=== PATIENT | male | born 1980 | race Caucasian/White ===

== ENCOUNTER 2017-03-12 15:31 | Emergency (ER) | payer OTHER ==
[2017-03-12] MEDS: PERCOCET 5MG/325MG TAB PO (17:37)
== END 2017-03-12 18:32 | disposition home or self-care (01) ==
LOC: M ED 15:31
DX: S13.4XXA Sprain of ligaments of cervical spine, initial encounter (principal); S63.502A Unspecified sprain of left wrist, initial encounter; M47.812 Spondylosis without myelopathy or radiculopathy, cervical region; W00.9XXA Unspecified fall due to ice and snow, initial encounter; Y92.093 Driveway of other non-institutional residence as the place of occurrence of the external cause; Y93.9 Activity, unspecified; Z79.899 Other long term (current) drug therapy
CPT/HCPCS: 73110

== ENCOUNTER 2017-11-23 11:50 | Emergency (ER) | payer OTHER | END 2017-11-23 13:01 | disposition home or self-care (01) | LOC: M ED 11:50 | DX: J20.9 Acute bronchitis, unspecified (principal); E78.5 Hyperlipidemia, unspecified; G47.33 Obstructive sleep apnea (adult) (pediatric); M79.2 Neuralgia and neuritis, unspecified; F17.210 Nicotine dependence, cigarettes, uncomplicated; Z79.899 Other long term (current) drug therapy | CPT/HCPCS: 71046 ==

== ENCOUNTER 2017-11-28 15:32 | Emergency (ER) | payer OTHER ==
[2017-11-28] MEDS: KETOROLAC TROMETHAMINE 10 MG TAB PO (16:07)
[2017-11-28] MEDS: BACLOFEN 10 MG TAB PO (16:07)
== END 2017-11-28 18:07 | disposition home or self-care (01) ==
LOC: M ED 15:32
DX: S62.115A Nondisplaced fracture of triquetrum [cuneiform] bone, left wrist, initial encounter for closed fracture (principal); S33.5XXA Sprain of ligaments of lumbar spine, initial encounter; W01.0XXA Fall on same level from slipping, tripping and stumbling without subsequent striking against object, initial encounter; Y92.512 Supermarket, store or market as the place of occurrence of the external cause; E78.5 Hyperlipidemia, unspecified; G47.33 Obstructive sleep apnea (adult) (pediatric); M79.2 Neuralgia and neuritis, unspecified; Z79.899 Other long term (current) drug therapy
CPT/HCPCS: 72110

== ENCOUNTER 2019-12-18 18:17 | Emergency (ER) | payer OTHER ==
[~2019-12-18] VITALS: Ht 188 cm; Wt 101.0 kg
[~2019-12-18 18:17] MED LIST: BENZ200C70 PO; CYCL-707 PO; CYCL5TAB PO; DICL75TA PO; GABA-845 PO; NAPR-837 PO; PERC5TAB12 PO
[2019-12-18] MEDS ORDERED: IBUPROFEN 600MG TAB PO ONE (19:15)
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
[2019-12-18] MEDS ORDERED: CYCL-707 PO (20:26)
[2019-12-18] MEDS ORDERED: IBUP-1022 PO (20:26)
[2019-12-18 20:35] VITALS: BP 129/93
== END 2019-12-18 20:38 | disposition home or self-care (01) ==
LOC: M ED 18:17
DX: T14.8XXA Other injury of unspecified body region, initial encounter (principal); S23.3XXA Sprain of ligaments of thoracic spine, initial encounter; S33.5XXA Sprain of ligaments of lumbar spine, initial encounter; V40.5XXA Car driver injured in collision with pedestrian or animal in traffic accident, initial encounter; M19.011 Primary osteoarthritis, right shoulder; M17.12 Unilateral primary osteoarthritis, left knee; M51.26 Other intervertebral disc displacement, lumbar region; M25.78 Osteophyte, vertebrae; Z79.899 Other long term (current) drug therapy

== ENCOUNTER 2020-11-26 16:51 | Inpatient (IN) | payer OTHER ==
[~2020-11-26] VITALS: Ht 188 cm; Wt 93.6 kg
[~2020-11-26 16:51] MED LIST changes: +GABA-283 PO; -GABA-845 PO; +IBUP-1022 PO
[2020-11-26] MEDS ORDERED: NS 1,000 ML IV ONE ×2 (17:30→23:15)
[2020-11-26 18:02] LABS: BASO % 0.2 % (0.0-1.0); EOS # 0.1 10^3/uL (0.0-0.5); EOS % 0.5 % (0.0-3.0); HEMATOCRIT 42.7 % (42.0-52.0); HEMOGLOBIN 15.1 g/dl (13.5-17.5); LYMPH # 0.7 10^3/uL (1.5-5.0); LYMPH % 4.4 % (24.0-44.0); MEAN CORPUSCULAR HEMOGLOBIN 29.8 pg (27.0-33.0); MEAN CORPUSCULAR HGB CONC 35.4 g/dl (32.0-36.5); MEAN CORPUSCULAR VOLUME 84.4 fl (80.0-96.0); MONO # 0.6 10^3/uL (0.0-0.8); MONO % 3.4 % (2.0-8.0); NEUTROPHILS # 14.7 10^3/uL (1.5-8.5); NEUTROPHILS % 90.6 % (36.0-66.0); PLATELET COUNT, AUTOMATED 273 10^3/uL (150-450); RED BLOOD COUNT 5.06 10^6/uL (4.30-6.10); WHITE BLOOD COUNT 16.2 10^3/uL (4.0-10.0)
[2020-11-26 18:39] LABS: ALBUMIN 2.4 GM/DL (3.2-5.2); ALT/SGPT 90 U/L (12-78); BILIRUBIN,DIRECT 0.8 MG/DL (0.0-0.2); BILIRUBIN,TOTAL 1.3 MG/DL (0.2-1.0); LIPASE 470 U/L (73-393); TOTAL PROTEIN 6.9 GM/DL (6.4-8.2)
[2020-11-26] MEDS ORDERED: ONDANSETRON 4MG/2ML VIAL IV ONE (18:50)
[2020-11-26] MEDS ORDERED: NS 1,600 ML in IV 1 EA IV ONE (18:50)
[2020-11-26 19:29] LABS: CK-MB VALUE MASS 4.1 NG/ML (<3.6); CPK CREATINE PHOSPHOKINASE 1505 U/L (39-308); MB/CK RELATIVE INDEX 0.27 (< OR =4); NT-PRO BNP 1224 PG/ML (<125); TROPONIN I < 0.02 NG/ML (< 0.10)
[2020-11-26 19:43] LABS: INR 1.13; PROTHROMBIN TIME 14.9 SECONDS (12.7-14.5)
[2020-11-26] MEDS: ALBUTEROL 90 MCG/ACT 8GM HFA INHALER INH SCH ×2 (20:17→22:26)
--- NOTE | 2020-11-26 20:22 | REPVR ---
PROCEDURE INFORMATION: Exam: XR Chest Exam date and time: 11/26/2020 6:50 PM Age: 40 years old Clinical indication: Shortness of breath; Additional info: SOB TECHNIQUE: Imaging protocol: XR of the chest. Views: 1 view. COMPARISON: CR Chest, 2 view PA, Lat 11/23/2017 12:21 PM FINDINGS: Lungs: There is very heavy interstitial and alveolar density left parahilar region and throughout the left lower lobe. This is consistent with an extensive pneumonia. This can be seen with COVID-19. Sequential films would be important to see that this completely resolves to exclude any possibility of underlying mass lesion. Pleural spaces: Unremarkable. No pleural effusion. No pneumothorax. Heart/Mediastinum: There is moderate prominence left side of the heart. Bones/joints: There is no evidence of bony abnormality. IMPRESSION: Extensive interstitial and alveolar pneumonic infiltrate left parahilar region and throughout the left lower lobe. This is a very extensive pneumonia and could be associated with COVID-19. Sequential films would be important to see that this resolves and to exclude any possibility of underlying mass lesion. Electronically signed by: Roman Hutton On 11/26/2020 20:22:32 PM
[2020-11-26 20:28] LABS: D-DIMER QUANT > 4000 ng/ml (<500)
--- NOTE | 2020-11-26 20:37 | REPVR ---
PROCEDURE INFORMATION: Exam: CT Abdomen And Pelvis Without Contrast Exam date and time: 11/26/2020 6:59 PM Age: 40 years old Clinical indication: Abdominal pain; Other: Luq; Additional info: Luq abd pain TECHNIQUE: Imaging protocol: Computed tomography of the abdomen and pelvis without contrast. Radiation optimization: All CT scans at this facility use at least one of these dose optimization techniques: automated exposure control; mA and/or kV adjustment per patient size (includes targeted exams where dose is matched to clinical indication); or iterative reconstruction. COMPARISON: CT Spine, lumbar w/o contrast 12/18/2019 7:05 PM FINDINGS: Lungs: There is a very extensive interstitial and alveolar infiltrate involving the left lower lobe and a portion of the mid lung field. Is extensive pneumonia could be associated with cold at 19. Follow-up study should be obtained to see that this completely clears and to exclude any possibility of underlying malignant nodule. Heart: The heart is normal in size and there is no pericardial effusion. Liver: Normal appearing liver. Gallbladder and bile ducts: There is sludge within the gallbladder. Pancreas: Normal pancreas. Spleen: Normal appearing spleen. Adrenal glands: Normal adrenal glands. Kidneys and ureters: There is no evidence of calcified stone right or left kidney. There is no evidence of hydronephrosis. There is stranding along the margins of both kidneys greater on the left. There is some enlargement of the left kidney. This could be the result pyelonephritis. Stomach and bowel: Unremarkable. No obstruction. No mucosal thickening. Appendix: Normal appendix with a small calcification at the tip. Intraperitoneal space: Unremarkable. No free air. No significant fluid collection. Vasculature: Unremarkable. No abdominal aortic aneurysm. Lymph nodes: Unremarkable. No enlarged lymph nodes. Urinary bladder: Normal urinary bladder. Reproductive: There is severe enlargement of the prostate. Bones/joints: Unremarkable. No acute fracture. Soft tissues: Unremarkable. IMPRESSION: Extensive infiltrate involving the left lower lobe and left mid lung field. This could be an extensive pneumonia associated with COVID-19. Follow-up films should be obtained to see that this clears to exclude any possibility of underlying malignant nodule. Electronically signed by: Roman Hutton On 11/26/2020 20:37:11 PM
[2020-11-26] MEDS ORDERED: cefTRIAXone SOD 1 GM in D5W MINI-BAG PLUS 50 ML IV ONE (21:20)
[2020-11-26] MEDS ORDERED: AZITHROMYCIN INJ 500 MG, VIAL MATE ADAPTER 1 EACH in NS 250 ML IV ONE (21:20)
[2020-11-26] MEDS ORDERED: SODIUM CHLORIDE 0.9% 1000ML IV STA (21:43)
[2020-11-26] MEDS ORDERED: MOM 30ML SUSPENSION UDC PO PRN (21:45)
[2020-11-26] MEDS ORDERED: GUAI400T9 PO (21:45)
[2020-11-26] MEDS ORDERED: FLON1SPR NARES (21:45)
[2020-11-26] MEDS ORDERED: NAPR-885 PO (21:45)
[2020-11-26] MEDS ORDERED: ATEN25TA PO (21:45)
[2020-11-26] MEDS ORDERED: METH-1164 PO (21:45)
[2020-11-26] MEDS ORDERED: MAALOX 30 ML SUSP *UDC PO PRN (21:45)
[2020-11-26] MEDS ORDERED: RIBO400T PO (21:45)
[2020-11-26] MEDS ORDERED: OCEA0.654 NARES (21:45)
[2020-11-26] MEDS ORDERED: BUPR15TA PO (21:45)
[2020-11-26] MEDS ORDERED: ROSU40TA4 PO (21:45)
[2020-11-26] MEDS ORDERED: ACET500T15 PO (21:45)
[2020-11-26] MEDS ORDERED: GNP1CRE5 TOP (21:45)
[2020-11-26] MEDS ORDERED: D31000TA2 PO (21:45)
[2020-11-26] MEDS ORDERED: METF-838 PO (21:45)
[2020-11-26] MEDS ORDERED: GABA-283 PO (21:45)
[2020-11-26] MEDS ORDERED: HOME MED LIST COMPLETE! XX SCH (21:50)
--- NOTE | 2020-11-26 21:57 | HPEPDOC ---
[facility] Medical History & Physical Date of Admission Nov 26, 2020 Date of Service: Nov 26, 2020 Other Provider Marcello John MD Attending Physician: TK ZAVALA MD History and Physical TIME OF SERVICE: 10 45pm CHIEF COMPLAINT: dyspnea HISTORY OF PRESENT ILLNESS: For about 6 days has been having dyspnea, diarrhea, & cough; he had a COVID test done at [facility] on Friday that was negative; he subsequently developed left upper abdominal pain, subjective fevers, non-bloody vomiting and has lost 20lbs in the last week because his appetite was poor. He came to the hospital today because he was worried about spreading the infection to other around and found that he had to stop work to go to the bathroom frequently. He was started on abx for presumed PNA in the ER. 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 ALLERGIES: Please see below. HOME MEDICATIONS: Please see below. PHYSICAL EXAMINATION: Vital Signs Date Time Temp Pulse Resp B/P (MAP) Pulse Ox O2 Delivery O2 Flow Rate FiO2 11/26/20 16:51 97.7 117 18 135/93 (107) 93 Room Air GENERAL APPEARANCE: well-nourished and developed/ NAD HEENT: EOMI / no scleral icterus / mask in place covering lower face CARDIOVASCULAR: tachycardic /NMRG LUNGS: tachypneic, using accessory muscles / has difficulties speaking a complete sentence w/o stopping to take a break ABDOMEN: contour convex/ soft & NT w palpation MUSCULOSKELETAL: NCAT / DAYSI x 4 extremities INTEGUMENT: slighlty flushed / not diaphoretic NEUROLOGICAL: CN 2-12 grossly intact / speech not dysarthric PSYCHIATRIC: A&O / able to understand and follow all commands LABORATORY DATA: IMAGING: Chest xray IMPRESSION: Extensive interstitial and alveolar pneumonic infiltrate left parahilar region and throughout the left lower lobe. This is a very extensive pneumonia and could be associated with COVID-19. Sequential films would be important to see that this resolves and to exclude any possibility of underlying mass lesion. CT abd/pelvis IMPRESSION: Extensive infiltrate involving the left lower lobe and left mid lung field. This could be an extensive pneumonia associated with COVID-19. Follow-up films should be obtained to see that this clears to exclude any possibility of underlying malignant nodule. MICROBIOLOGY: Respiratory panel neg ASSESSMENT: is a 70 yr old M w a hx of Migraines, NIDDM, OA, DLP, Chronic Back pain, & MYRON who will be admitted for sepsis likely 2/2 PNA & CANDACE. PLAN: 1 Sepsis 2/2 PNA Plan: admit to PCU / telemetry / Zosyn and vancomycin first pending blood cx & lactic acid / IVF /f/u blood cx, UA w culture and sputum culture / Acetaminophen PRN for fever / target MAP at of least 65 to 70 / f/u Is and Os with target UOP of at least 0.5 ml/kg/H / f/u FSBS w target serum glucose 140-180 while acutely ill 2 Chest pain likely 2/2 PNA Plan: f/u CT chest / continuous pulse ox & supplemental O2/ f/u sputum culture / Pip-Tazo & Vanc pending blood cx, sputum cx, strep pneumo, legionella & MRSA / IVF / Tessalon pearls / Acetaminophen PRN for fever 3 CANDACE 2/2 poor PO intake, metformin and NSAID use Plan: monitor UOP / IVF / f/u renal panel, Ulytes, UDS / renal US / hold nephrotoxic drugs 4 Hepatic Pattern of Transaminitis Plan: f/u Hepatitis panel & trend LFTs 5 Metabolic acidosis 2/2 diarrhea +/- RTA Plan: f/u AGB to further characterize cause 6 Hyponatremia Plan; f/u serum osm, Uosmo and Sofi 7 Elevated CPK Plan: f/u urine myoglobin & UDS / trend CPK/ IVF 8 Elevated BNP Clinically dehydrated therefore this is likely due to PNA Plan: f/u CT chest 9 Elevated D-dimer Likely due to acute illness but need to r/o embolic event Plan: f/u BLE US & consider VQ Scan / start Heparin drip in the interim 10 Diarrhea Plan; f/u GI panel 11 Migraines Plan: Atenolol 12 NIDDM Plan: diabetic diet / f/u accuchecks / hypoglycemia protocol / sliding scale insulin / hold oral anti-glycemics / f/u A1C / hold Gabapentin for neuropathy bc of CANDACE? DVT px w Heparin drip pending results to r/o DVT/PE Dispo: home after at least 2 midnights stay LATE ENTRY 1252AM #Elevate D-dimer Likely 2/2 PNA The BLE US were negative for DVT and his Well's scores for DVT & PE are low therefore we will dc the heparin drip in favor for prophylactic dose heparin Home Medications Scheduled Atenolol (Atenolol) 25 Mg Tablet, 12.5 MG PO DAILY Bupropion HCl (Wellbutrin Sr) 150 Mg Tab.sr.12h, 150 MG PO BID Cholecalciferol (Vitamin D3) (Vitamin D3) 1,000 Unit Tablet, 1,000 UNITS PO BIDWM Fluticasone Propionate (Flonase Allergy Relief) 9.9 Ml [place].susp, 1 SPRAY NARES DAILY Gabapentin (Gabapentin) 400 Mg Capsule, 400 MG PO TID Guaifenesin (Guaifenesin) 400 Mg Tablet, 400 MG PO BID Metformin HCl (Metformin HCl ER) 500 Mg Tab.er.24h, 500 MG PO BIDWM Methocarbamol (Methocarbamol) 500 Mg Tablet, 250 MG PO QHS Naproxen (Naproxen) 500 Mg Tablet, 500 MG PO BID Riboflavin (Vitamin B2) (Riboflavin) 400 Mg Tablet, 400 MG PO DAILY Rosuvastatin Calcium (Rosuvastatin Calcium) 40 Mg Tablet, 40 MG PO QPM Sodium Chloride ([place]) 104 Ml [place], 1 SPRAY NARES BID EACH NOSTRIL Scheduled PRN Acetaminophen (Acetaminophen) 500 Mg Tablet, 500 MG PO Q6H PRN for HEADACHE Terbinafine HCl (Terbinafine) 28.4 Gm Cream..g., 1 APLCT TOP BID PRN for TOENAIL INFECTION Allergies Coded Allergies: No Known Allergies (Unverified , 03/12/17) A-FIB/CHADSVASC A-FIB History Current/History of A-Fib/PAF?: No Current PO Anticoag Therapy: No TK ZAVALA MD Nov 26, 2020 21:57
[2020-11-26 22:49] LABS: MAGNESIUM LEVEL 2.7 MG/DL (1.8-2.4)
[2020-11-26 22:55] LABS: CALCIUM LEVEL 7.9 MG/DL (8.5-10.1); CREATININE FOR GFR 4.95 MG/DL (0.70-1.30); GLOMERULAR FILTRATION RATE 13.8 (>60); PHOSPHORUS LEVEL 4.4 MG/DL (2.5-4.9); POTASSIUM SERUM 3.8 MEQ/L (3.5-5.1); TOTAL PROTEIN 5.9 GM/DL (6.4-8.2)
[2020-11-26] MEDS ORDERED: DEXTROSE 50% 50 ML SYRINGE IV PRN (22:55)
[2020-11-26] MEDS ORDERED: GLUCAGON INJ 1MG VIAL SC PRN (22:55)
[2020-11-26] MEDS ORDERED: GLUCOSE 4GM CHEW TABLET PO PRN (22:55)
[2020-11-26] MEDS: buPROPion **SR TABLET** (ZYBAN) 150MG PO SCH (22:55)
[2020-11-26] MEDS ORDERED: GABAPENTIN 400MG CAP PO SCH (22:55)
[2020-11-26] MEDS ORDERED: methocarbamoL 500 MG TAB PO SCH (22:55)
[2020-11-26] MEDS ORDERED: HEPARIN DRIP 25,000 UNITS in IV 1 EA IV SCH (23:15)
[2020-11-26] MEDS ORDERED: HEPARIN SOD (PORCINE) 5000UNITS/ML 1ML VIAL/SYRINGE IV PRN (23:15)
--- NOTE | 2020-11-26 23:48 | REPVR ---
PROCEDURE INFORMATION: Exam: US Duplex Lower Extremity Veins, Bilateral Exam date and time: 11/26/2020 10:47 PM Age: 40 years old Clinical indication: Abnormal findings; Abnormal lab test; Elevated d-dimer; Additional info: Dyspnea w high d-dimer can't do cta bc of mauricio / R/O dvt TECHNIQUE: Imaging protocol: Real-time duplex ultrasound of the extremities with 2-D padgett scale, color Doppler flow and spectral waveform analysis with image documentation. Complete exam focused on the bilateral lower extremity veins. COMPARISON: CT ABD PELVIS W/O CONTRAST 11/26/2020 6:55 PM FINDINGS: Right deep veins: Unremarkable. The common femoral, femoral, proximal profunda femoral and popliteal veins are patent without thrombus. Normal Doppler waveforms. Normal compressibility and/or augmentation response. Right superficial veins: Saphenofemoral junction is patent without thrombus. Left deep veins: Unremarkable. The common femoral, femoral, proximal profunda femoral and popliteal veins are patent without thrombus. Normal Doppler waveforms. Normal compressibility and/or augmentation response. Left superficial veins: Saphenofemoral junction is patent without thrombus. Soft tissues: Unremarkable. IMPRESSION: No evidence of deep vein thrombosis. Electronically signed by: Roman Hutton On 11/26/2020 23:48:11 PM
[2020-11-27] VITALS (20 sets, daily range): BP systolic 117–143; BP diastolic 64–88; PULSE 103; O2SAT 92–97
[2020-11-27] MEDS ORDERED: VANCOMYCIN HCL 1,000 MG, VIAL MATE ADAPTER 1 EACH in NS 250 ML IV ONE ×3
[2020-11-27 00:22] LABS: ABG BASE EXCESS -7.9 (-2.0-2.0); ABG HCO3 15.7 MEQ/L (22.0-26.0); ABG O2 SATURATION 95.9 % (95.0-99.0); ABG PARTIAL PRESSURE CO2 27.4 mmHg (35.0-45.0); ABG PARTIAL PRESSURE O2 87.4 mmHg (75.0-100.0); ABG STANDARD HCO3 18.1 MEQ/L (22.0-26.0); ABG TOTAL CO2 16.6 MEQ/L (22.0-29.0); ABG pH (ARTERIAL) 7.377 UNITS (7.350-7.450)
--- NOTE | 2020-11-27 00:34 | REPVR ---
PROCEDURE INFORMATION: Exam: CT Chest Without Contrast; Diagnostic Exam date and time: 11/26/2020 10:04 PM Age: 40 years old Clinical indication: Pain; Chest pressure; Additional info: Dyspnea with negative covid test TECHNIQUE: Imaging protocol: Diagnostic computed tomography of the chest without contrast. 3D rendering (Not supervised by radiologist): MIP and/or 3D reconstructed images were created by the technologist. Radiation optimization: All CT scans at this facility use at least one of these dose optimization techniques: automated exposure control; mA and/or kV adjustment per patient size (includes targeted exams where dose is matched to clinical indication); or iterative reconstruction. COMPARISON: 1. CR PORTABLE CHEST X-RAY 11/26/2020 6:[address] ABD PELVIS W/O CONTRAST 11/26/2020 6:55:00 PM FINDINGS: Limitations: Respiratory motion artifact degrades the image quality. Thyroid: Unremarkable. Trachea: Normal. Bronchial tree: The mainstem bronchi are patent. Lungs: There is extensive airspace consolidation in the left upper and lower lobes. No cavitation is noted. The right lung is clear. Pleural spaces: There is a trace left pleural effusion. No pneumothorax. No calcified pleural plaques. Heart: No cardiomegaly. There is a trace amount of fluid in the pericardial sac. Mediastinal space: No mediastinal mass, fluid collection, or pneumomediastinum. Aorta: No thoracic aortic aneurysm or intramural hematoma is noted. Lymph nodes: There are subcentimeter mediastinal lymph nodes. However, no abnormally enlarged lymph nodes measuring greater than 1 cm in short axis are noted. Bones/joints: There is no fracture or dislocation. No suspicious osteolytic or osteoblastic lesion. There is a screw in the right glenoid. There is severe osteoarthritis of the right glenohumeral joint. There are endplate spurs in the thoracic spine. Soft tissues: Unremarkable. No soft tissue fluid collection. Other findings: For details regarding the abdominal and pelvic findings, refer to the CT abdomen and pelvis report on 11/26/2020. IMPRESSION: 1. Extensive airspace consolidation in the left upper and lower lobes, which is most compatible with pneumonia. 2. Trace left pleural effusion. Electronically signed by: Jett Dupont On 11/27/2020 00:34:18 AM
[2020-11-27 00:47] LABS: OSMOLALITY SERUM 302 MOSM/KG (275-295)
[2020-11-27] MEDS: LIDOCAINE 5% (LIDODERM) PATCH TD SCH ×2 (01:47→21:34)
[2020-11-27] MEDS: NS 1,000 ML IV SCH ×5 (01:48→23:17)
[2020-11-27] MEDS ORDERED: VANCOMYCIN HCL 1,000 MG, VIAL MATE ADAPTER 1 EACH in NS 250 ML IV SCH (03:00)
[2020-11-27 04:16] LABS: HEMATOCRIT 35.3 % (42.0-52.0); MEAN CORPUSCULAR HEMOGLOBIN 30.1 pg (27.0-33.0); MEAN CORPUSCULAR HGB CONC 35.4 g/dl (32.0-36.5); MEAN CORPUSCULAR VOLUME 85.1 fl (80.0-96.0); PLATELET COUNT, AUTOMATED 264 10^3/uL (150-450); RED BLOOD COUNT 4.15 10^6/uL (4.30-6.10); WHITE BLOOD COUNT 12.3 10^3/uL (4.0-10.0)
[2020-11-27 04:32] LABS: HEMOGLOBIN 12.5 g/dl (13.5-17.5)
[2020-11-27 04:38] LABS: HEMOGLOBIN A1c 5.7 %
[2020-11-27 04:39] LABS: ALBUMIN 1.8 GM/DL (3.2-5.2); BILIRUBIN,TOTAL 0.8 MG/DL (0.2-1.0); CALCIUM LEVEL 8.2 MG/DL (8.5-10.1); CREATININE FOR GFR 4.9 MG/DL (0.70-1.30); GLOMERULAR FILTRATION RATE 13.9 (>60); MAGNESIUM LEVEL 2.6 MG/DL (1.8-2.4); POTASSIUM SERUM 3.4 MEQ/L (3.5-5.1); TOTAL PROTEIN 6.2 GM/DL (6.4-8.2)
[2020-11-27] MEDS: PIPERACILLIN/TAZOBACTAM SOD 3.375 GM in D5W MINI-BAG PLUS 50 ML IV SCH ×2 (04:40→09:38)
[2020-11-27] MEDS: HumaLOG INSULIN (NovoLOG) PER UNIT SC SCH ×4 (05:35→18:00)
[2020-11-27] MEDS ORDERED: HEPARIN SOD (PORCINE) 5000UNITS/ML 1ML VIAL/SYRINGE SQ SCH (06:00)
[2020-11-27 06:46] LABS: CREATININE,RANDOM URINE 90.7 MG/DL
[2020-11-27 06:46] LABS: AMPHETAMINES LEVEL URINE NEGATIVE (NEGATIVE); BARBITURATES URINE NEGATIVE (NEGATIVE); BENZODIAZEPINES URINE NEGATIVE (NEGATIVE); CANNABINOIDS URINE NEGATIVE (NEGATIVE); COCAINE METABOLITE URINE NEGATIVE (NEGATIVE); METHADONE URINE NEGATIVE (NEGATIVE); OPIATES URINE NEGATIVE (NEGATIVE); PHENCYCLIDINE URINE NEGATIVE (NEGATIVE)
[2020-11-27 07:44] LABS: MYOGLOBIN SCREEN, URINE POSITIVE (NEGATIVE)
[2020-11-27] MEDS ORDERED: POTASSIUM CHLORIDE 10MEQ SR TABLET PO ONE (08:00)
[2020-11-27] MEDS: FLUTICASONE PROP 0.05% NASAL SPRAY 16 GM (FLONASE) NARES SCH (09:36)
[2020-11-27] MEDS: atenoloL 25 MG TAB PO SCH (09:37)
[2020-11-27] MEDS: buPROPion **SR TABLET** (ZYBAN) 150MG PO SCH ×2 (09:37→21:34)
[2020-11-27 12:07] LABS: HEPATITIS B SURFACE ANTIBODY POSITIVE (POSITIVE)
[2020-11-27 12:11] LABS: PTH INTACT 50.7 PG/ML (18.5-88.0)
[2020-11-27 12:18] LABS: HEPATITIS B SURFACE ANTIGEN NEGATIVE (NEGATIVE)
[2020-11-27 12:46] LABS: HEPATITIS B CORE ANTIBODY IGM NEGATIVE (NEGATIVE); HEPATITIS C VIRUS ABY INDEX < 0.0 INDEX (<0.8)
[2020-11-27 14:27] LABS: HIV 1&2 SCREEN CENTAUR NEGATIVE (NEGATIVE)
[2020-11-27] MEDS: CEFEPIME HCL 2 GM in D5W MINI-BAG PLUS 50 ML IV SCH (16:30)
[2020-11-27 16:43] LABS: HEMOGLOBIN A1c 5.7 %
[2020-11-27 17:48] LABS: CALCIUM LEVEL 7.3 MG/DL (8.5-10.1); CREATININE FOR GFR 4.81 MG/DL (0.70-1.30); GLOMERULAR FILTRATION RATE 14.2 (>60); POTASSIUM SERUM 4.2 MEQ/L (3.5-5.1)
--- NOTE | 2020-11-27 19:06 | IPNPDOC ---
Date Seen The patient was seen on 11/27/20. Progress Note SUBJECTIVE: Patient is a 40-year-old male with sepsis, chest pain, CANDACE, likely all secondary to pneumonia. Was experiencing symptoms of dyspnea, diarrhea, cough 6 days prior to presentation to the ED. He reports no new events overnight and reports resolution of shortness of,, and difficulty breathing. OBJECTIVE PHYSICAL EXAMINATION: VITAL SIGNS: Please see below. GENERAL: 40-year-old male, sitting propped in bed, no acute distress HEENT: Head normocephalic/atraumatic CARDIOVASCULAR: Regular rate and rhythm (limited due to poor quality of single use stethoscope provided). RESPIRATORY: Egophony heard on auscultation. ABDOMINAL: Suprapubic fullness detected on palpation LABORATORY DATA, IMAGING STUDIES, MICROBIOLOGY: Please see below. Imaging Vascular ultrasound 11/26/2020: No evidence of deep vein fibrosis Chest CT 11/26/2020: 1. Extensive airspace consolidation in the left upper and lower lobes, which is most compatible with pneumonia. 2. Trace left pleural effusion. Abdomen pelvis CT 11/26/2020: Extensive infiltrate involving the left lower lobe and left mid lung field. This could be an extensive pneumonia associated with COVID-19. Follow-up films should be obtained to see that this clears to exclude any possibility of underlying malignant nodule. Chest x-ray 11/26/2020: Extensive interstitial and alveolar pneumonic infiltrate left parahilar region and throughout the left lower lobe. This is a very extensive pneumonia and could be associated with COVID-19. Sequential films would be important to see that this resolves and to exclude any possibility of underlying mass lesion. Echocardiogram: . DVT prophylaxis ordered?: Heparin ASSESSMENT AND PLAN: This is a 40-year-old male with sepsis, chest pain, AKA likely secondary to pneumonia. Also has history of migraines, and IDDM, OA, hyperlipidemia, chronic back pain, obstructive sleep apnea. PROBLEMS: 1 Sepsis 2/2 PNA Plan: admit to PCU / telemetry Zosyn and vancomycin discontinued switched to cefepime and azithromycin IVF /f/u blood cx, UA w culture and sputum culture Acetaminophen PRN for fever Target MAP at of least 65 to 70 / f/u Is and Os with target UOP of at least 0.5 ml/kg/H / f/u FSBS w target serum glucose 140-180 while acutely ill HIV negative 2 Chest pain likely 2/2 PNA Plan: f/u CT chest Continuous pulse ox & supplemental O2 FU sputum culture Pending blood cx, sputum cx, strep pneumo, legionella & MRSA IVF / Tessalon pearls / Acetaminophen PRN for fever 3 CANDACE 2/2 poor PO intake, metformin and NSAID use Plan: monitor UOP / IVF / f/u renal panel, Ulytes, UDS / renal US / hold nephrotoxic drugs 4 Hepatic Pattern of Transaminitis Plan: f/u Hepatitis panel & trend LFTs 5 Metabolic acidosis 2/2 diarrhea +/- RTA Plan: f/u AGB to further characterize cause 6 Hyponatremia Plan; f/u serum osm, Uosmo and Sofi 7 Elevated CPK Plan: f/u urine myoglobin & UDS / trend CPK/ IVF 8 Elevated BNP Clinically dehydrated therefore this is likely due to PNA 9 Elevated D-dimer Likely due to acute illness , Wells score also very low. Heparin drip will be discontinued 10 Diarrhea Plan; f/u GI panel 11 Migraines Plan: Atenolol 12 NIDDM Plan: diabetic diet / f/u accuchecks / hypoglycemia protocol / sliding scale insulin / hold oral anti-glycemics / f/u A1C / hold Gabapentin for neuropathy bc of CANDACE? DVT prophylaxis with Heparin subcu Dispo: home after at least 2 midnights stay VS, I&O, [facility] Vital Signs/I&O Vital Signs Date Time Temp Pulse Resp B/P (MAP) Pulse Ox O2 Delivery O2 Flow Rate FiO2 11/27/20 16:00 96.7 68 18 117/76 (90) 94 Room Air I&O- Last 24 Hours up to 6 AM 11/27/20 06:00 Intake Total 2905 ml Balance 2905 ml Laboratory Data 24H LABS Laboratory Tests 2 11/26/20 19:17: Prothrombin Time 14.9H, Prothromb Time International Ratio 1.13, Activated Partial Thromboplast Time 40.0H, D-Dimer, Quantitative > 4000H 11/26/20 20:20: Urine Color YELLOW, Urine Appearance HAZY, Urine pH 5.0, Urine Specific [place] 1.015, Urine Protein 2+H, Urine Glucose (UA) NEGATIVE, Urine Ketones TRACEH, Urine Blood 2+H, Urine Nitrite NEGATIVE, Urine Bilirubin NEGATIVE, Urine Urobilinogen 2.0H, Urine Leukocyte Esterase NEGATIVE, Urine WBC (Auto) 1, Urine RBC (Auto) 7H, Urine Hyaline Casts (Auto) 0, Urine Bacteria (Auto) NEGATIVE, Ur ine Squamous Epithelial Cells 0, Urine Amorphous Sediment SMALLH, Urine Mucus (Auto) SMALL, Urine Sperm (Auto) 11/26/20 22:17: Anion Gap 14, Glomerular Filtration Rate 13.8L, Osmolality 302H, Lactic Acid Level 1.0, Calcium Level 7.9L, Phosphorus Level 4.4, Magnesium Level 2.7H, Total Bilirubin 1.0, Aspartate Amino Transf (AST/SGOT) 97H, Alanine Aminotransferase (ALT/SGPT) 73, Alkaline Phosphatase 78, Total Protein 5.9L, Albumin 2.0L, Albumin/Globulin Ratio 0.5, Procalcitonin 21.12, Parathyroid Hormone (Intact) 50.7, Hepatitis B Surface Antigen NEGATIVE, Hepatitis B Surface Antibody POSITIVE, Hepatitis B Core IgM Antibody NEGATIVE, Hepatitis C Antibody Index < 0.0 11/26/20 23:51: Activated Partial Thromboplast Time 40.9H 11/27/20 00:10: Blood Gas Bicarbonate Standard 18.1L, Arterial Blood pH 7.377, Arterial Blood Partial Pressure CO2 27.4L, Arterial Blood Partial Pressure O2 87.4, Arterial Blood Total CO2 16.6L, Arterial Blood HCO3 15.7L, Arterial Blood Base Excess - 7.9L, Arterial Blood Oxygen Saturation 95.9 11/27/20 01:39: Bedside Glucose (Misc Panel) 153H 11/27/20 04:01: Nucleated Red Blood Cells % (auto) 0.0, Anion Gap 12, Glomerular Filtration Rate 13.9L, Estimated Mean Plasma Glucose 117H, Hemoglobin A1c 5.7, Calcium Level 8.2L, Magnesium Level 2.6H, Total Bilirubin 0.8, Aspartate Amino Transf (AST/SGOT) 82H, Alanine Aminotransferase (ALT/SGPT) 66, Alkaline Phosphatase 78, Total Creatine Kinase 1028H, MK-Fdy-X-Type Natriuretic Peptide 935H, Total Protein 6.2L, Albumin 1.8L, Albumin/Globulin Ratio 0.4 11/27/20 05:33: Bedside Glucose (Misc Panel) 121H 11/27/20 05:52: Urine Myoglobin POSITIVE, Urine Osmolality 459, Urine Opiates Screen NEGATIVE, Urine Methadone Screen NEGATIVE, Urine Barbiturates Screen NEGATIVE, Urine Phencyclidine Screen NEGATIVE, Urine Amphetamines Screen NEGATIVE, Urine Benzodiazepines Screen NEGATIVE, Urine Cocaine Metabolite Screen NEGATIVE, Urine Cannabinoids Screen NEGATIVE, Methicillin-Resist S.aureus DNA PCR NOT DETECTED 11/27/20 05:56: Urine Random Creatinine 90.7, Urine Random Sodium 48, Urine Random Urea Nitrogen 823 11/27/20 12:17: Prostate Specific Antigen Screen 6.80H, HIV Antigen/Antibody Combo Qual NEGATIVE 11/27/20 12:20: Bedside Glucose (Misc Panel) 153H 11/27/20 12:23: 11/27/20 12:29: 11/27/20 16:37: Anion Gap 10, Glomerular Filtration Rate 14.2L, Calcium Level 7.3L 11/27/20 17:36: Bedside Glucose (Misc Panel) 103 CBC/BMP Laboratory Tests 11/26/20 22:17 11/27/20 04:01 11/27/20 16:37 Microbiology Microbiology 11/27/20 Respiratory Virus Panel (PCR) (KRYSTLE) - Final, Complete 11/26/20 Blood Culture, Received Pending 11/26/20 Blood Culture, Received Pending 11/26/20 Respiratory Virus Panel (PCR) (KRYSTLE) - Final, Complete GME ATTESTATION GME ATTESTATION My faculty preceptor for this patient encounter was physically present during the encounter and was fully available. All aspects of the patient interview, examination, medical decision making process, and medical care plan development were reviewed and approved by the faculty preceptor. The faculty preceptor is aware and concurs with the plan as stated in the body of this note and will attest to such by his/her cosignature. ATTENDING NOTE I, Eh Ramesh MD, have independently examined this patient and performed my own physical exam, as well as reviewed the documentation and edited where necessary. I have discussed in detail with the resident / student the findings and plan of treatment as documented by the resident / student and edited their note. I agree with their findings and treatment plan and have edited their documentation. Mark Cruz DO Nov 27, 2020 19:06 EH RAMESH MD Dec 01, 2020 12:44
[2020-11-27] MEDS ORDERED: **NOTE PATIENT COMMENT** MISC XX SCH (21:00)
[2020-11-27] MEDS: AZITHROMYCIN 250MG TABLET PO SCH (21:34)
[2020-11-27] MEDS: HEPARIN SOD (PORCINE) 5000UNITS/ML 1ML VIAL/SYRINGE SQ SCH (21:34)
[2020-11-28] VITALS (12 sets, daily range): BP systolic 125–143; BP diastolic 77–86; O2SAT 90–97
[2020-11-28] MEDS: HumaLOG INSULIN (NovoLOG) PER UNIT SC SCH ×5 (00:35→21:00)
[2020-11-28] MEDS: CEFEPIME HCL 2 GM in D5W MINI-BAG PLUS 50 ML IV SCH ×2 (03:45→17:11)
[2020-11-28 05:15] LABS: HEMATOCRIT 36.3 % (42.0-52.0); HEMOGLOBIN 12.5 g/dl (13.5-17.5); MEAN CORPUSCULAR HEMOGLOBIN 29.9 pg (27.0-33.0); MEAN CORPUSCULAR HGB CONC 34.4 g/dl (32.0-36.5); MEAN CORPUSCULAR VOLUME 86.8 fl (80.0-96.0); PLATELET COUNT, AUTOMATED 378 10^3/uL (150-450); RED BLOOD COUNT 4.18 10^6/uL (4.30-6.10); WHITE BLOOD COUNT 9.9 10^3/uL (4.0-10.0)
[2020-11-28 05:42] LABS: ALBUMIN 1.7 GM/DL (3.2-5.2); BILIRUBIN,TOTAL 0.6 MG/DL (0.2-1.0); CALCIUM LEVEL 8.2 MG/DL (8.5-10.1); CREATININE FOR GFR 4.47 MG/DL (0.70-1.30); GLOMERULAR FILTRATION RATE 15.5 (>60); MAGNESIUM LEVEL 2.5 MG/DL (1.8-2.4); POTASSIUM SERUM 3.9 MEQ/L (3.5-5.1)
[2020-11-28] MEDS: HEPARIN SOD (PORCINE) 5000UNITS/ML 1ML VIAL/SYRINGE SQ SCH ×3 (05:44→21:54)
[2020-11-28 05:46] LABS: EOSINOPHILS 7 % (0-3); LYMPHOCYTES 6 % (16-44); MONOCYTES 6 % (0-5); NEUTROPHILS 76 % (28-66)
[2020-11-28 05:47] LABS: PLATELET ESTIMATE NORMAL (NORMAL)
[2020-11-28] MEDS ORDERED: SODIUM CHLORIDE 0.9% 1000ML IV ONE (07:40)
[2020-11-28] MEDS: FLUTICASONE PROP 0.05% NASAL SPRAY 16 GM (FLONASE) NARES SCH (08:40)
[2020-11-28] MEDS: buPROPion **SR TABLET** (ZYBAN) 150MG PO SCH ×2 (08:40→20:58)
[2020-11-28] MEDS: atenoloL 25 MG TAB PO SCH (08:40)
[2020-11-28] MEDS: **NOTE PATIENT COMMENT** MISC XX SCH (08:42)
--- NOTE | 2020-11-28 09:15 | ECHO ---
ECHOCARDIOGRAM DATE OF PROCEDURE: 11/27/2020 Age: Gender: M Height: 188 cm Weight: 87 kg REFERRING PHYSICIAN: Dr. Mark Cruz INDICATION: Dyspnea MEASUREMENTS: IVS: 0.9 LV: 4.7 LVPW: 1.0 LA: 3.4 Aorta: 3.0 Left atrial volume index: 21 Mitral E wave velocity is 80; A wave 50 E prime septal: 13 E prime lateral: 15 FINDINGS: This study is of good technical quality. The patient is in sinus rhythm. Left ventricle has normal size and systolic function with estimated ejection fraction (EF) of approximately 60% to 65%. No segmental wall motion abnormalities are appreciated. Right ventricle has also normal size and systolic function. Both atria appear normal. All four cardiac valves are reasonably well seen and appear normal. No pericardial effusion is noted. Left pleural effusion is seen. Inferior vena cava is normal size. Aortic root, aortic arch and visualized segment of abdominal aorta appear normal. Doppler interrogation reveals competent aortic valve. There is trace mitral and trace tricuspid insufficiency. Calculated pulmonary artery pressure is within normal limits. Mitral inflow pattern and tissue Doppler imaging of mitral annulus revealed normal diastolic function. CONCLUSIONS: 1. Study is of good technical quality, underlying sinus rhythm. 2. Normal left ventricle (LV) size, systolic and diastolic function. 3. No significant valvular disease. 4. Likely normal central venous pressure, normal pulmonary artery pressure. 5. Left pleural effusion.
[2020-11-28] MEDS: NS 1,000 ML IV SCH ×3 (09:38→22:23)
--- NOTE | 2020-11-28 10:36 | REP ---
INDICATION: mauricio COMPARISON: 02/08/2019 TECHNIQUE: Real time padgett scale ultrasound examination using curved array transducer. FINDINGS: Bilateral kidneys are normal in contour, size, echogenicity, and reniform shape. No hydronephrosis, nephrolithiasis, cystic or renal mass lesion. Right kidney measures 12.3 x 5.7 x 5.4 cm. Left kidney measures 12.4 x 7.8 x 6.0 cm. Heterogeneous prostate gland measures 5.0 x 3.9 x 4.1 cm. Bladder is unremarkable. IMPRESSION: Normal renal ultrasound. Mildly prominent heterogeneous prostate gland. <Electronically signed by Praneeth Roberto > 11/28/20 1037
--- NOTE | 2020-11-28 12:05 | IPNPDOC ---
Date Seen The patient was seen on 11/28/20. Progress Note SUBJECTIVE: Patient is a 40-year-old male with sepsis, chest pain, CANDACE likely secondary to pneumonia. Today patient reports feeling better than yesterday. He reports no more shortness of breath but he does endorse productive cough. Review of systems: Constitutional: Denies fever, chills Cardiac: Denies chest pain, tachycardia Respiratory: Reports productive cough; denies shortness of breath, pain with breathing Gastrointestinal: Denies nausea, vomiting, diarrhea Neurological: Denies headache, dizziness Genitourinary: Denies hematuria, dysuria OBJECTIVE PHYSICAL EXAMINATION: VITAL SIGNS: Please see below. GENERAL: 40-year-old, male, sitting propped up in bed, in no acute distress HEENT: Normocephalic atraumatic, moist mucous membranes and tongue CARDIOVASCULAR: Regular rate and rhythm, no murmurs, no rubs, no gallops RESPIRATORY: Clear to auscultation bilateral. ABDOMINAL: Normoactive bowel sounds, nontender to palpation, nondistended, no guarding or rebound tenderness EXTREMITIES: 2+ radial pulse LABORATORY DATA, IMAGING STUDIES, MICROBIOLOGY: Please see below. Renal ultrasound 11/28/2020: Normal renal ultrasound. Mildly prominent heterogeneous prostate gland. Vascular ultrasound 11/26/2020: No evidence of deep vein fibrosis Chest CT 11/26/2020: 1. Extensive airspace consolidation in the left upper and lower lobes, which is most compatible with pneumonia. 2. Trace left pleural effusion. Abdomen pelvis CT 11/26/2020: Extensive infiltrate involving the left lower lobe and left mid lung field. This could be an extensive pneumonia associated with COVID-19. Follow-up films should be obtained to see that this clears to exclude any possibility of underlying malignant nodule. Chest x-ray 11/26/2020: Extensive interstitial and alveolar pneumonic infiltrate left parahilar region and throughout the left lower lobe. This is a very extensive pneumonia and could be associated with COVID-19. Sequential films would be important to see that this resolves and to exclude any possibility of underlying mass lesion. Echocardiogram: . DVT prophylaxis ordered?: Heparin ASSESSMENT AND PLAN: ASSESSMENT AND PLAN: This is a 40-year-old male with sepsis, chest pain, AKA likely secondary to pneumonia. Also has history of migraines, and IDDM, OA, hyperlipidemia, chronic back pain, obstructive sleep apnea. PROBLEMS: 1 Sepsis 2/2 PNA Plan: admit to PCU / telemetry Zosyn and vancomycin discontinued switched to cefepime and azithromycin IVF decreased to 75 mls/hr f/u blood cx, UA w culture and sputum culture Acetaminophen PRN for fever Target MAP at of least 65 to 70 f/u Is and Os with target UOP of at least 0.5 ml/kg/H / f/u FSBS w target serum glucose 140-180 while acutely ill HIV negative 2 Chest pain likely 2/2 PNA Plan: f/u CT chest Continuous pulse ox & supplemental O2 FU sputum culture Pending blood cx, sputum cx, strep pneumo, legionella & MRSA IVF Tessalon pearls / Acetaminophen PRN for fever 3 CANDACE more likely ATN 2/2 poor PO intake, metformin and NSAID use Plan: monitor UOP / IVF / f/u renal panel, Ulytes, UDS / renal US / hold nephrotoxic drugs Spot urine, Cr, and total protein labs, cytology and microscopy ordered 4 Hepatic Pattern of Transaminitis Plan: f/u Hepatitis panel & trend LFTs 5 Metabolic acidosis 2/2 diarrhea +/- RTA Plan: f/u AGB to further characterize cause 6 Hyponatremia Plan; f/u serum osm, Uosmo and Sofi 7 Elevated CPK Plan: f/u urine myoglobin & UDS / trend CPK/ IVF 8 Elevated BNP Clinically dehydrated therefore this is likely due to PNA 9 Elevated D-dimer Likely due to acute illness but need to r/o embolic event Plan: f/u BLE US & consider VQ Scan / start Heparin drip in the interim 10 Diarrhea Plan; f/u GI panel 11 Migraines Plan: Atenolol 12 NIDDM Plan: diabetic diet / f/u accuchecks / hypoglycemia protocol / sliding scale insulin / hold oral anti-glycemics / f/u A1C / hold Gabapentin for neuropathy bc of CANDACE? DVT prophylaxis with Heparin subcu Dispo: home after at least 2 midnights stay VS, I&O, 24H, Fishbone Vital Signs/I&O Vital Signs Date Time Temp Pulse Resp B/P (MAP) Pulse Ox O2 Delivery O2 Flow Rate FiO2 11/28/20 08:00 96.8 71 18 133/85 (101) 94 Room Air I&O- Last 24 Hours up to 6 AM 11/28/20 06:00 Intake Total 4840 ml Output Total 3000 ml Balance 1840 ml Laboratory Data 24H LABS Laboratory Tests 2 11/27/20 12:17: Prostate Specific Antigen Screen 6.80H, HIV Antigen/Antibody Combo Qual NEGATIVE 11/27/20 12:20: Bedside Glucose (Misc Panel) 153H 11/27/20 12:23: 11/27/20 12:29: 11/27/20 16:37: Anion Gap 10, Glomerular Filtration Rate 14.2L, Calcium Level 7.3L 11/27/20 17:36: Bedside Glucose (Misc Panel) 103 11/27/20 23:16: Bedside Glucose (Misc Panel) 130H 11/28/20 04:37: Anion Gap 8, Glomerular Filtration Rate 15.5L, Calcium Level 8.2L, Neutrophils (%) (Auto) , Nucleated Red Blood Cells % (auto) 0.0, Neutrophils 76H, Band Neutrophils 5, Lymphocytes (Manual) 6L, Monocytes (Manual) 6H, Eosinophils (Manual) 7H, Red Blood Cell Morphology NORMAL, Platelet Estimate NORMAL, Magnesium Level 2.5H, Total Bilirubin 0.6, Aspartate Amino Transf (AST/SGOT) 57H, Alanine Aminotransferase (ALT/SGPT) 64, Alkaline Phosphatase 67, LB-Jty-R-Type Natriuretic Peptide 1578H, Total Protein 6.0L, Albumin 1.7L, Albumin/Globulin Ratio 0.4 11/28/20 05:41: Bedside Glucose (Misc Panel) 98 11/28/20 08:05: Bedside Glucose (Misc Panel) 105 CBC/BMP Laboratory Tests 11/27/20 16:37 11/28/20 04:37 Microbiology Microbiology 11/28/20 Gram Stain - Final, Resulted 11/28/20 Sputum Culture, Resulted Pending 11/27/20 Respiratory Virus Panel (PCR) ([facility]YSTLE) - Final, Complete 11/26/20 Blood Culture - Preliminary, Resulted No growth after 24 hours . All specim... 11/26/20 Blood Culture - Preliminary, Resulted No growth after 24 hours . All specim... 11/26/20 Respiratory Virus Panel (PCR) ([facility]YSTLE) - Final, Complete GME ATTESTATION GME ATTESTATION My faculty preceptor for this patient encounter was physically present during the encounter and was fully available. All aspects of the patient interview, examination, medical decision making process, and medical care plan development were reviewed and approved by the faculty preceptor. The faculty preceptor is aware and concurs with the plan as stated in the body of this note and will attest to such by his/her cosignature. ATTENDING NOTE I, Eh Ramesh MD, have independently examined this patient and performed my own physical exam, as well as reviewed the documentation and edited where necessary. I have discussed in detail with the resident / student the findings and plan of treatment as documented by the resident / student and edited their note. I agree with their findings and treatment plan and have edited their documentation. Mark Cruz DO Nov 28, 2020 12:05 EH RAMESH MD Dec 01, 2020 12:54
[2020-11-28 13:40] LABS: BACTERIA, URINE AUTO NEGATIVE (NEGATIVE); RBC, URINE AUTO 2 /HPF (0-3); SQUAMOUS EPITHELIAL CELL UR AU 0 /HPF (0-6); WBC, URINE AUTO 0 /HPF (0-3)
[2020-11-28 14:01] LABS: CREATININE,RANDOM URINE 69.3 MG/DL; TOTAL PROTEIN,RANDOM URINE 31.4 MG/DL (0.0-12.0)
[2020-11-28 17:07] LABS: MYCOPLASMA PNEUMONIAE IgG <100 U/mL (0-99); MYCOPLASMA PNEUMONIAE IgM <770 U/mL (0-769)
[2020-11-28 18:44] LABS: HEPATITIS A ANTIBODY IGM NEGATIVE (NEGATIVE); HEPATITIS B CORE ANTIBODY IGM NEGATIVE (NEGATIVE); HEPATITIS B SURFACE ANTIGEN NEGATIVE (NEGATIVE); HEPATITIS C VIRUS ABY INDEX < 0.0 INDEX (<0.8)
[2020-11-28] MEDS ORDERED: HumaLOG INSULIN (NovoLOG) PER UNIT SC SCH (19:10)
[2020-11-28] MEDS: AZITHROMYCIN 250MG TABLET PO SCH (20:58)
[2020-11-28] MEDS: LIDOCAINE 5% (LIDODERM) PATCH TD SCH (21:00)
[2020-11-29] VITALS: BP 137/87
[2020-11-29] MEDS: CEFEPIME HCL 2 GM in D5W MINI-BAG PLUS 50 ML IV SCH (03:56)
[2020-11-29 04:00] VITALS: BP 131/91
[2020-11-29] MEDS: HEPARIN SOD (PORCINE) 5000UNITS/ML 1ML VIAL/SYRINGE SQ SCH ×3 (05:30→20:39)
[2020-11-29] MEDS: HumaLOG INSULIN (NovoLOG) PER UNIT SC SCH ×4 (07:30→20:53)
[2020-11-29 07:59] LABS: HEMATOCRIT 37.8 % (42.0-52.0); HEMOGLOBIN 12.7 g/dl (13.5-17.5); MEAN CORPUSCULAR HGB CONC 33.6 g/dl (32.0-36.5); MEAN CORPUSCULAR VOLUME 89.2 fl (80.0-96.0); PLATELET COUNT, AUTOMATED 473 10^3/uL (150-450); RED BLOOD COUNT 4.24 10^6/uL (4.30-6.10); WHITE BLOOD COUNT 9.1 10^3/uL (4.0-10.0)
[2020-11-29 08:27] LABS: CALCIUM LEVEL 7.9 MG/DL (8.5-10.1); CREATININE FOR GFR 4.17 MG/DL (0.70-1.30); GLOMERULAR FILTRATION RATE 16.8 (>60); MAGNESIUM LEVEL 2.2 MG/DL (1.8-2.4); POTASSIUM SERUM 4.7 MEQ/L (3.5-5.1)
[2020-11-29 08:28] VITALS: BP 130/89
[2020-11-29 08:44] LABS: ATYPICAL LYMPH 2 % (0-5); EOSINOPHILS 1 % (0-3); LYMPHOCYTES 10 % (16-44); MONOCYTES 3 % (0-5); NEUTROPHILS 83 % (28-66); PLATELET ESTIMATE NORMAL (NORMAL)
[2020-11-29] MEDS ORDERED: PILL CUTTER 1 EACH XX PRN (10:10)
[2020-11-29] MEDS: buPROPion **SR TABLET** (ZYBAN) 150MG PO SCH ×2 (11:19→20:38)
[2020-11-29] MEDS: atenoloL 25 MG TAB PO SCH (11:20)
[2020-11-29] MEDS: FLUTICASONE PROP 0.05% NASAL SPRAY 16 GM (FLONASE) NARES SCH (11:20)
[2020-11-29] MEDS: **NOTE PATIENT COMMENT** MISC XX SCH (11:20)
[2020-11-29] MEDS: SODIUM BICARBONATE 100 MEQ in D5W 1,000 ML IV SCH (13:12)
[2020-11-29 13:57] LABS: APPEARANCE, URINE CLEAR (CLEAR); BACTERIA, URINE AUTO NEGATIVE (NEGATIVE); BILIRUBIN, URINE AUTO NEGATIVE (NEGATIVE); BLOOD, URINE BLOOD 1+ (NEGATIVE); COLOR, URINE YELLOW (YELLOW); GLUCOSE, URINE (UA) AUTO NEGATIVE (NEGATIVE); KETONE, URINE AUTO NEGATIVE (NEGATIVE); LEUKOCYTE ESTERASE, URINE AUTO NEGATIVE (NEGATIVE); MUCUS, URINE SMALL (NEGATIVE); NITRITE, URINE AUTO NEGATIVE (NEGATIVE); PROTEIN, URINE AUTO NEGATIVE (NEGATIVE); RBC, URINE AUTO 1 /HPF (0-3); SQUAMOUS EPITHELIAL CELL UR AU 0 /HPF (0-6); UROBILINOGEN, URINE AUTO 0.2 mg/dL (0.0-2.0); WBC, URINE AUTO 2 /HPF (0-3)
[2020-11-29 14:09] LABS: CHLAMYDIA PNEUMONIAE IgM <1:10 (Neg:<1:10)
[2020-11-29 16:01] VITALS: BP 133/86
--- NOTE | 2020-11-29 16:16 | IPNPDOC ---
Date Seen The patient was seen on 11/29/20. Progress Note SUBJECTIVE: Patient is a 40-year-old male with with sepsis, chest pain, CANDACE likely secondary to pneumonia. He reports maintaining improvements in breathing and overall status. No events reported overnight his lab values indicate his kidney is slowly improving. OBJECTIVE PHYSICAL EXAMINATION: VITAL SIGNS: Please see below. GENERAL: 40-year-old male, lying in bed, no acute distress, eating breakfast HEENT: Head normocephalic atraumatic CARDIOVASCULAR: Regular rate and rhythm, no murmurs, no rubs, no gallops RESPIRATORY: CTA bilaterally, no wheezes, no rhonchi, no crackles. ABDOMINAL: Normoactive bowel sounds EXTREMITIES: No lower extremity edema appreciated, 2+ radial pulses PSYCHOLOGICAL: Alert and oriented x4 LABORATORY DATA, IMAGING STUDIES, MICROBIOLOGY: Please see below. Imaging: Renal ultrasound 11/28/2020: Normal renal ultrasound. Mildly prominent heterogeneous prostate gland. Vascular ultrasound 11/26/2020: No evidence of deep vein fibrosis Chest CT 11/26/2020: 1. Extensive airspace consolidation in the left upper and lower lobes, which is most compatible with pneumonia. 2. Trace left pleural effusion. Abdomen pelvis CT 11/26/2020: Extensive infiltrate involving the left lower lobe and left mid lung field. This could be an extensive pneumonia associated with COVID-19. Follow-up films should be obtained to see that this clears to exclude any possibility of underlying malignant nodule. Chest x-ray 11/26/2020: Extensive interstitial and alveolar pneumonic infiltrate left parahilar region and throughout the left lower lobe. This is a very extensive pneumonia and could be associated with COVID-19. Sequential films would be important to see that this resolves and to exclude any possibility of underlying mass lesion. Sputum culture resulted 11/28/2020: Few yeastlike organisms with pseudohyphae, moderate gram-positive cocci in pairs, chains and clusters, few gram-positive rods DVT prophylaxis ordered?: Heparin ASSESSMENT AND PLAN: This is a 40-year-old male with sepsis secondary to pneumonia. PROBLEMS: 1 Sepsis likely secondary to pneumonia plan: admit to PCU / telemetry Cefepime and azithromycin IVF decreased to 75 mls/hr f/u blood cx, UA w culture and sputum culture Acetaminophen PRN for fever Target MAP at of least 65 to 70 f/u Is and Os with target UOP of at least 0.5 ml/kg/H / f/u FSBS w target serum glucose 140-180 while acutely ill HIV negative 2 Chest pain likely 2/2 PNA Plan: f/u CT chest Continuous pulse ox & supplemental O2 See sputum culture results above Pending blood cxs (no growth after 48 hours), strep pneumo, legionella & MRSA IVF Tessalon pearls / Acetaminophen PRN for fever 3 CANDACE more likely ATN 2/2 poor PO intake, metformin and NSAID use Plan: monitor UOP / IVF / f/u renal panel, Ulytes, UDS / renal US / hold nephrotoxic drugs Spot urine, Cr, and total protein labs, cytology and microscopy ordered Urine culture results: Atypical cytology with groups of epithelial cells noted Urine random total protein of 31.4 and creatinine of 69.3 Urology consult placed with Dr. Lopez due to GFR less than 20 4 Hepatic Pattern of Transaminitis Plan: f/u Hepatitis panel & trend LFTs 5 Metabolic acidosis 2/2 diarrhea +/- RTA Plan: f/u AGB to further characterize cause 6 Hyponatremia Plan; f/u serum osm, Uosmo and Sofi 7 Elevated CPK Plan: f/u urine myoglobin & UDS / trend CPK/ IVF 8 Elevated BNP Clinically dehydrated therefore this is likely due to PNA 9 Elevated D-dimer Likely due to acute illness but need to r/o embolic event Plan: f/u BLE US & consider VQ Scan / start Heparin drip in the interim 10 Diarrhea Plan; f/u GI panel 11 Migraines Plan: Atenolol 12 NIDDM Plan: diabetic diet / f/u accuchecks / hypoglycemia protocol / sliding scale insulin / hold oral anti-glycemics / f/u A1C / hold Gabapentin for neuropathy bc of CANDACE? 13. Elevated PSA -Mildly prominent heterogeneous prostate gland and PSA elevated at 6.80 -Will advise patient to FU with urology outpatient DVT prophylaxis with Heparin subcu Dispo: home after at least 2 midnights stay VS, I&O, 24H, Fishbone Vital Signs/I&O Vital Signs Date Time Temp Pulse Resp B/P (MAP) Pulse Ox O2 Delivery O2 Flow Rate FiO2 11/29/20 16:01 97.8 71 18 133/86 (102) 95 Room Air I&O- Last 24 Hours up to 6 AM 10/13/21 06:00 Intake Total 3915 ml Output Total 2200 ml Balance 1715 ml Laboratory Data 24H LABS Laboratory Tests 2 11/28/20 17:10: Methicillin-Resist S.aureus DNA PCR NOT DETECTED 11/28/20 17:12: Hepatitis A IgM Antibody NEGATIVE, Hepatitis B Surface Antigen NEGATIVE, Hepatitis B Core IgM Antibody NEGATIVE, Hepatitis C Antibody Index < 0.0 11/28/20 17:17: Bedside Glucose (Misc Panel) 141H 11/28/20 20:56: Bedside Glucose (Misc Panel) 145H 11/29/20 07:11: Bedside Glucose (Misc Panel) 90 11/29/20 07:41: Neutrophils (%) (Auto) , Nucleated Red Blood Cells % (auto) 0.0, Neutrophils 83H, Band Neutrophils 1, Lymphocytes (Manual) 10L, Monocytes (Manual) 3, Eosinophils (Manual) 1, Atypical Lymphocytes 2, Platelet Estimate NORMAL, Anion Gap 13, Glomerular Filtration Rate 16.8L, Calcium Level 7.9L, Magnesium Level 2.2, TY-Vpc-G-Type Natriuretic Peptide 2646H 11/29/20 11:23: Bedside Glucose (Misc Panel) 150H 11/29/20 13:16: Urine Color YELLOW, Urine Appearance CLEAR, Urine pH 6.0, Urine Specific [place] 1.010, Urine Protein NEGATIVE, Urine Glucose (Auto)(UA) NEGATIVE, Urine Ketones (Auto) NEGATIVE, Urine Blood 1+H, Urine Nitrite NEGATIVE, Urine Bilirubin NEGATIVE, Urine Urobilinogen 0.2, Urine Leukocyte Esterase (Auto) NEGATIVE, Urine WBC (Auto) 2, Urine RBC (Auto) 1, Urine Hyaline Casts (Auto) 0, Urine Bacteria (Auto) NEGATIVE, Urine Squamous Epithelial Cells 0, Urine Mucus (Auto) SMALL, Urine Sperm (Auto) CBC/BMP Laboratory Tests 11/29/20 07:41 Microbiology Microbiology 11/28/20 Gram Stain - Final, Resulted 11/28/20 Sputum Culture, Resulted Pending 11/27/20 Respiratory Virus Panel (PCR) ([facility]STLE) - Final, Complete 11/26/20 Blood Culture - Preliminary, Resulted No Growth after 48 hours. All Specime... 11/26/20 Blood Culture - Preliminary, Resulted No Growth after 48 hours. All Specime... 11/26/20 Respiratory Virus Panel (PCR) ([facility]STLE) - Final, Complete GME ATTESTATION GME ATTESTATION My faculty preceptor for this patient encounter was physically present during the encounter and was fully available. All aspects of the patient interview, examination, medical decision making process, and medical care plan development were reviewed and approved by the faculty preceptor. The faculty preceptor is aware and concurs with the plan as stated in the body of this note and will attest to such by his/her cosignature. Mark Cruz DO Nov 29, 2020 16:16
[2020-11-29 18:09] LABS: BODY FLUID CULTURE Not indicated. (.); ORGANISM ID Not indicated. (.); SPECIMEN SOURCE Urine (.); URINE STREP PNEUMONIAE ANTIGEN Negative (Negative)
[2020-11-29] MEDS: AZITHROMYCIN 250MG TABLET PO SCH (20:38)
[2020-11-29] MEDS: LIDOCAINE 5% (LIDODERM) PATCH TD SCH (20:39)
[2020-11-29 21:36] VITALS: BP 142/89
--- NOTE | 2020-11-29 23:17 | CR ---
CONSULTATION DATE: 11/29/2020 REQUESTING PHYSICIAN: Dr. Eh Schrader CONSULTING PHYSICIAN: Dr. Yanira Lopez REASON FOR CONSULTATION: Management of acute renal failure, metabolic acidosis. CHIEF COMPLAINT: Patient presented to the hospital November 26, 2020, with diarrhea and dyspnea. HISTORY OF PRESENT ILLNESS: Note: History was obtained from patient's chart and from the medical team. The patient himself is not a very good historian. Ulises Shea is a 40-year-old male with a past medical history of non-insulin dependent diabetes, history of brain concussion in the past, other multiple comorbidities as mentioned below. He was having a few days history of dyspnea and diarrhea with cough. [facility]. He was also having subjective fevers. He was only taking Tylenol at home for improvement of his symptoms. He was admitted initially under the hospitalist service with sepsis secondary to pneumonia. Patient was in acute renal failure when he was admitted to the hospital. His creatinine on arrival was 4.9, which was attributed to his sepsis and dehydration. He was given aggressive I.V. fluid hydration, however despite that, his renal function has not significantly improved. His creatinine today morning was 4.1. Nephrology service was called for further help in the management of this patient. I saw and evaluated the patient today morning at the bedside. Patient was awake and alert, was able to answer some questions, but he is not a very good historian. He was getting I.V. fluid hydration with normal saline when I saw him. 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 PAST SURGICAL HISTORY: Status post left knee meniscal surgery, right scapular open reduction internal fixation. FAMILY HISTORY: No significant family history of end-stage renal disease. SOCIAL HISTORY: Patient is a . He occasionally drinks alcohol. He does not smoke. ALLERGIES: No known drug allergies. REVIEW OF SYSTEMS: CONSTITUTIONAL: He denies any fevers and chills at this time. EYES: He denies any blurry vision, double vision. ENT: He denies any dysphagia, odynophagia. CARDIOVASCULAR: He denies any chest pain or palpitations. RESPIRATORY: He denies any shortness of breath. GI: He denies any abdominal pain, but he did have diarrhea on arrival. GENITOURINARY: Denies any dysuria or hematuria. MUSCULOSKELETAL: Denies any muscle aches and pains. SKIN: Denies any rashes or ulcers. HEMATOLOGICAL/ONCOLOGICAL: Denies any easy bleeding or bruising. TREER: Denies any weakness. All other review of systems is negative. PHYSICAL EXAMINATION: VITAL SIGNS: Temperature 98.5 degrees Fahrenheit, blood pressure 142/89, pulse 70, respiratory rate 22, saturating 96% on room air. HEAD/NECK: Extraocular muscles intact. Pupils equally round and reactive to light. Mucous membranes are moist. Neck is supple. There is no JVD. CARDIOVASCULAR: S1, S2, regular rate. No edema of the bilateral lower extremities. RESPIRATORY: Chest is clear to auscultation bilaterally. Bilateral equal air entry. No rales or rhonchi. ABDOMEN: Soft, positive bowel sounds, nontender. No organomegaly. GENITOURINARY: No signs of retention. I did bedside bladder scan and post void residual over 150 cc. MUSCULOSKELETAL: No clubbing or cyanosis. Pulses are 2+. TREER: No focal deficit. Power is 5/5 in all extremities. LABORATORY REVIEW: CBC showed WBC 9.1, hemoglobin 12.7, platelets 473,000. Repeat urinalysis done today showed 1+ blood and there is no protein. BMP done today showed sodium 143, potassium 4.7, chloride 114, bicarb 16, BUN 76, creatinine 4.1. Calcium 7.9. Magnesium 2.2. BISI screen is pending. Urine Legionella is pending. Mycoplasma pneumoniae IGM and IGG is negative. MRSA was not detected. Urine for pneumonia is negative. Urine Legionella is positive. MICROBIOLOGY: All the blood cultures are negative so far. IMAGING: Renal ultrasound was done yesterday, which showed normal renal ultrasound, mildly prominent prostate gland. CT of the chest was done on November 26, which showed extensive airspace consolidation in the left upper and lower lobes, which is most compatible with pneumonia. CURRENT INPATIENT MEDICATIONS: Patient's medications were all reviewed by myself. He is getting Cefepime 2 grams I.V. every 12 hours; I have decreased the dose to 2 grams I.V. daily because of renal function. Patient was getting normal saline; I have stopped the normal saline. I have started the patient on Sodium Bicarbonate 100 mEq and D4W at 80 cc an hour. He is getting Mylanta p.r.n., Atenolol 12.5 mg p.o. daily, Azithromycin 500 mg p.o. daily, Wellbutrin 150 mg p.o. twice a day, Heparin subcutaneously, insulin Lispro sliding scale, Milk of Magnesia p.r.n. ASSESSMENT AND PLAN: 1. Acute renal failure: Patient has acute nonoliguric renal failure most likely related to sepsis legionella pneumonia and polypharmacy at home, however, patient is making good amount of urine. Repeat urinalysis shows only hematuria, there is no proteinuria, there is a possibility of ATN or acute interstitial nephritis. Baseline renal function is not known. I expect that patient will make full recovery back to his baseline, however, I am going to change the I.V. fluids as mentioned below. 2. Hyperchloremic metabolic acidosis: Patient is getting normal saline which is making the hyperchloremic acidosis worse. I have stopped the normal saline and started the patient on I.V. bicarb containing fluid. Hopefully acidosis should resolve once the kidney function starts getting better. 3. Community-acquired pneumonia: Patient is on I.V. Cefepime and Azithromycin. I have decreased the Cefepime dose to 2 gram I.V. daily because his GFR at this time is less than 20. 4. Non-insulin dependent diabetes: Patient is on insulin sliding scale. Avoid use of Metformin or CATARINO inhibitors at this time, in acute renal failure. Thank you for involving me in the care of this patient. I shall be happy to follow the patient along with you tomorrow morning. MTDD
[2020-11-30] MEDS: SODIUM BICARBONATE 100 MEQ in D5W 1,000 ML IV SCH (00:48)
[2020-11-30 04:00] VITALS: BP 136/98
[2020-11-30 04:50] LABS: HEMATOCRIT 36.8 % (42.0-52.0); HEMOGLOBIN 12.4 g/dl (13.5-17.5); MEAN CORPUSCULAR HGB CONC 33.7 g/dl (32.0-36.5); MEAN CORPUSCULAR VOLUME 88.9 fl (80.0-96.0); PLATELET COUNT, AUTOMATED 535 10^3/uL (150-450); RED BLOOD COUNT 4.14 10^6/uL (4.30-6.10); WHITE BLOOD COUNT 9.4 10^3/uL (4.0-10.0)
[2020-11-30] MEDS: HEPARIN SOD (PORCINE) 5000UNITS/ML 1ML VIAL/SYRINGE SQ SCH ×3 (05:14→20:29)
[2020-11-30 08:00] VITALS: BP 144/87
[2020-11-30 08:28] LABS: CALCIUM LEVEL 8.1 MG/DL (8.5-10.1); CREATININE FOR GFR 4.05 MG/DL (0.70-1.30); GLOMERULAR FILTRATION RATE 17.4 (>60); POTASSIUM SERUM 4.6 MEQ/L (3.5-5.1)
[2020-11-30] MEDS: HumaLOG INSULIN (NovoLOG) PER UNIT SC SCH ×4 (08:59→21:00)
[2020-11-30 09:00] VITALS: BP 130/81
[2020-11-30] MEDS: buPROPion **SR TABLET** (ZYBAN) 150MG PO SCH ×2 (09:00→20:29)
[2020-11-30] MEDS: ATENOLOL 12.5MG PER 1/2 TABLET PO SCH (09:03)
[2020-11-30] MEDS: FLUTICASONE PROP 0.05% NASAL SPRAY 16 GM (FLONASE) NARES SCH (09:04)
[2020-11-30] MEDS: CEFEPIME HCL 2 GM in D5W MINI-BAG PLUS 50 ML IV SCH (09:04)
[2020-11-30] MEDS: **NOTE PATIENT COMMENT** MISC XX SCH (09:15)
[2020-11-30 10:10] VITALS: BP 159/78
[2020-11-30 14:00] VITALS: BP 154/80
[2020-11-30 14:10] LABS: ANTINUCLEAR ANTIBODIES DIRECT Negative (Negative)
--- NOTE | 2020-11-30 15:49 | IPNPDOC ---
Date Seen The patient was seen on 11/30/20. Progress Note SUBJECTIVE: Patient is a 40-year-old male with sepsis, chest pain, CANDACE likely secondary to pneumonia. He was examined at bedside and reports no changes overnight. His kidney function is slowly been improving. OBJECTIVE PHYSICAL EXAMINATION: VITAL SIGNS: Please see below. GENERAL: 40-year-old male, lying in bed, no acute distress, watching TV HEENT: Head normocephalic atraumatic CARDIOVASCULAR: Regular rate and rhythm, no murmurs, rubs, gallop. RESPIRATORY: Clear to auscultation bilaterally, no wheezes, no rhonchi, no crackles. ABDOMINAL: Normoactive bowel sounds and nontender to palpation in all 4 quadrants, no rebound tenderness or guarding present EXTREMITIES: No lower extremity edema appreciated, 2+ pedal pulses bilaterally LABORATORY DATA, IMAGING STUDIES, MICROBIOLOGY: Please see below. Imaging Renal ultrasound 11/28/2020: Normal renal ultrasound. Mildly prominent heterogeneous prostate gland. Vascular ultrasound 11/26/2020: No evidence of deep vein fibrosis Chest CT 11/26/2020: 1. Extensive airspace consolidation in the left upper and lower lobes, which is most compatible with pneumonia. 2. Trace left pleural effusion. Abdomen pelvis CT 11/26/2020: Extensive infiltrate involving the left lower lobe and left mid lung field. This could be an extensive pneumonia associated with COVID-19. Follow-up films should be obtained to see that this clears to exclude any possibility of underlying malignant nodule. Chest x-ray 11/26/2020: Extensive interstitial and alveolar pneumonic infiltrate left parahilar region and throughout the left lower lobe. This is a very extensive pneumonia and could be associated with COVID-19. Sequential films would be important to see that this resolves and to exclude any possibility of underlying mass lesion. Microbiology: Serology: Positive for chlamydia pneumonia IgG antibodies Preliminary sputum culture: Yeastlike organism, moderate staph aureus Final Gram stain of sputum culture: Moderate epithelial cells, many WBCs, few yeast like organisms with pseudohyphae, moderate Gram stain positive cocci in pairs, chains, and clusters few gram-positive rods Both blood cultures have shown no growth after 72 hours DVT prophylaxis ordered?: Heparin ASSESSMENT AND PLAN: This is a 40-year-old male with sepsis, CANDACE, likely secondary to pneumonia. PROBLEMS: Sepsis likely secondary to pneumonia Cefepime dose decreased per nephrology recommendations and azithromycin dose continued NS IVF discontinued and IV Na Bicarb added per nephrology f/u blood cx, UA w culture and sputum culture: See microbiology section above Acetaminophen PRN for fever Target MAP at of least 65 to 70 f/u Is and Os with target UOP of at least 0.5 ml/kg/H / f/u FSBS w target serum glucose 140-180 while acutely ill HIV negative 2 Chest pain likely 2/2 PNA Plan: f/u CT chest Continuous pulse ox & supplemental O2 See sputum culture results above Pending blood cxs (no growth after 48 hours), strep pneumo, legionella & MRSA IVF changed to sodium bicarb per nephrology Tessalon pearls / Acetaminophen PRN for fever 3 CANDACE more likely ATN 2/2 poor PO intake, metformin and NSAID use Plan: monitor UOP / IVF / f/u renal panel, Ulytes, UDS / renal US / hold nephrotoxic drugs Spot urine, Cr, and total protein labs, cytology and microscopy ordered Urine culture results: Atypical cytology with groups of epithelial cells noted Urine random total protein of 31.4 and creatinine of 69.[address] Winston recommendations IV cefepime dose has been decreased, and IVF sodium bicarb has been added in place of normal saline. Creatinine has been slowly downtrending daily 4 Hepatic Pattern of Transaminitis Plan: f/u Hepatitis panel & trend LFTs 5 Metabolic acidosis 2/2 diarrhea +/- RTA Plan: f/u AGB to further characterize cause 6 Hyponatremia Plan; f/u serum osm, Uosmo and Sofi 7 Elevated CPK Plan: f/u urine myoglobin & UDS / trend CPK/ IVF 8 Elevated BNP Clinically dehydrated therefore this is likely due to PNA 9 Elevated D-dimer Likely due to acute illness but need to r/o embolic event Plan: f/u BLE US & consider VQ Scan / start Heparin drip in the interim 10 Diarrhea Plan; f/u GI panel 11 Migraines Plan: Atenolol 12 NIDDM Plan: diabetic diet / f/u accuchecks / hypoglycemia protocol / sliding scale insulin / hold oral anti-glycemics / f/u A1C / hold Gabapentin for neuropathy bc of CANDACE? 13. Elevated PSA -Mildly prominent heterogeneous prostate gland and PSA elevated at 6.80 -Will advise patient to FU with urology outpatient DVT prophylaxis with Heparin subcu Dispo: home after at least 2 midnights stay VS, I&O, 24H, Fishbone Vital Signs/I&O Vital Signs Date Time Temp Pulse Resp B/P (MAP) Pulse Ox O2 Delivery O2 Flow Rate FiO2 11/30/20 14:00 98.4 75 19 154/80 (104) 95 Room Air I&O- Last 24 Hours up to 6 AM 11/30/20 06:00 Intake Total 3120 ml Output Total 3450 ml Balance -330 ml Laboratory Data 24H LABS Laboratory Tests 2 11/29/20 17:46: Bedside Glucose (Misc Panel) 121H 11/29/20 20:48: Bedside Glucose (Misc Panel) 130H 11/30/20 04:23: Anion Gap 8, Glomerular Filtration Rate 17.4L, Calcium Level 8.1L 11/30/20 04:25: Nucleated Red Blood Cells % (auto) 0.0 11/30/20 07:19: Bedside Glucose (Misc Panel) 109H 11/30/20 12:12: Bedside Glucose (Misc Panel) 98 CBC/BMP Laboratory Tests 11/30/20 04:23 11/30/20 04:25 Microbiology Microbiology 11/28/20 Gram Stain - Final, Resulted 11/28/20 Sputum Culture - Preliminary, Resulted Yeast Like Organism Staphylococcus Aureus 11/27/20 Respiratory Virus Panel (PCR) ([facility]) - Final, Complete 11/26/20 Blood Culture - Preliminary, Resulted No Growth after 72 hours. All specime... 11/26/20 Blood Culture - Preliminary, Resulted No Growth after 72 hours. All specime... 11/26/20 Respiratory Virus Panel (PCR) ([facility]) - Final, Complete GME ATTESTATION GME ATTESTATION My faculty preceptor for this patient encounter was physically present during the encounter and was fully available. All aspects of the patient interview, examination, medical decision making process, and medical care plan development were reviewed and approved by the faculty preceptor. The faculty preceptor is aware and concurs with the plan as stated in the body of this note and will attest to such by his/her cosignature. Mark Cruz DO Nov 30, 2020 15:49
[2020-11-30] MEDS ORDERED: SENNA 8.6 MG TAB (SENOKOT) PO PRN (20:20)
[2020-11-30] MEDS ORDERED: MIRALAX *UNIT DOSE* 17GM PACKET PO PRN (20:20)
[2020-11-30] MEDS: AZITHROMYCIN 250MG TABLET PO SCH (20:29)
[2020-11-30] MEDS: DOCUSATE SODIUM 100MG CAPSULE PO SCH (20:30)
[2020-11-30] MEDS: LIDOCAINE 5% (LIDODERM) PATCH TD SCH (20:30)
[2020-11-30 22:00] VITALS: BP 152/84
--- NOTE | 2020-11-30 23:01 | IPNPDOC ---
Subjective CC/HPI The patient is a 40-year-old male admitted with a reason for visit of Roger,Pneumonia,Sepsis. Events since last encounter Pt was seen in Med/Surg and is feeling better. He has good urine output, >2L daily. Bicarb is improving with IV bicarb drip. Cr slowly improving 4.1-->4 now. General: Denies: Chills, Night Sweats Constitutional: Denies: Chills, Fever Eyes: Denies: Pain, Vision change ENT: Denies: Head Aches, Ear Pain Skin: Denies: Rash, Lesions Pulmonary: Denies: Dyspnea, Cough Cardiovascular: Denies: Chest Pain, Palpitations Gastrointestinal: Denies: Nausea, Vomiting Genitourinary: Denies: Dysuria, Frequency Hematologic: Denies: Bruising, Bleeding Excessively Musculoskeletal: Denies: Neck Pain, Back Pain Neurological: Denies: Weakness, Numbness Psych: Reports: Mood Normal Objective Physical Examination General Exam: Alert, No Acute Distress EYE EXAM: PERRLA, Conjunctiva & lids normal, EOMI ENT EXAM: Atraumatic, Mucous membr. moist/pink Neck Exam: Supple; No: JVD Chest Exam: Clear to auscultation, Normal air movement Heart Exam: Rate Normal; No: Murmurs, Rubs ABDOMEN EXAM: Normal bowel sounds, Soft; No: Tenderness Extremity Exam: No: Clubbing, Cyanosis, Edema Skin Exam: Nl turgor and temperature; No: Rash Neuro Exam: Normal Speech, Strength at 5/5 X4 ext Psych Exam: Mental status NL, Mood NL, Oriented x 3 Vital Signs/I&O Vital Signs Date Time Temp Pulse Resp B/P (MAP) Pulse Ox O2 Delivery O2 Flow Rate FiO2 11/30/20 22:00 97.8 76 18 152/84 (106) 96 Room Air I&O- Last 24 Hours up to 6 AM 11/30/20 06:00 Intake Total 3120 ml Output Total 3450 ml Balance -330 ml Laboratory Data Labs 24H Laboratory Tests 2 11/30/20 04:23: Anion Gap 8, Glomerular Filtration Rate 17.4L, Calcium Level 8.1L 11/30/20 04:25: Nucleated Red Blood Cells % (auto) 0.0 11/30/20 07:19: Bedside Glucose (Misc Panel) 109H 11/30/20 12:12: Bedside Glucose (Misc Panel) 98 11/30/20 16:47: Bedside Glucose (Misc Panel) 97 11/30/20 19:39: Bedside Glucose (Misc Panel) 158H CBC/BMP Laboratory Tests 11/30/20 04:23 11/30/20 04:25 FSBS Laboratory Tests Test 11/30/20 07:19 11/30/20 12:12 11/30/20 16:47 11/30/20 19:39 Range/Units Bedside Glucose (Misc Panel) 109 98 97 158 70-105 MG/DL Current Medications Current Medications Medications (Trade) Dose Ordered Sig/Ernst Route PRN Reason Start Time Stop Time Status Last Admin Dose Admin Al Hydrox/Mg Hydrox/Simethicone (Mylanta) 30 ml DAILY PRN PO DYSPEPSIA 11/26/20 21:45 Albuterol Sulfate (Proventil, Ventolin Hfa) 4 puff Q20M INH 11/26/20 19:15 11/26/20 19:56 DC 11/26/20 20:17 Atenolol (Tenormin) 12.5 mg DAILY PO 11/27/20 09:00 11/29/20 11:28 DC 11/29/20 11:20 Atenolol (Tenormin) 12.5 mg DAILY PO 11/30/20 09:00 11/30/20 09:03 Azithromycin (Zithromax Tab) 500 mg DAILY@2100 PO 11/27/20 21:00 11/30/20 20:29 Bupropion HCl (Zyban, Wellbutrin Sr) 150 mg BID PO 11/26/20 22:55 11/30/20 20:29 Cefepime HCl 2 gm/ Dextrose 50 ml @ 100 mls/hr DAILY IV 11/30/20 09:00 11/30/20 09:04 Cefepime HCl 2 gm/ Dextrose 50 ml @ 100 mls/hr Q12H IV 11/27/20 16:00 11/29/20 11:20 DC 11/29/20 03:56 Dextrose (Dextrose 50%) 25 ml ASDIRECTED PRN IV SEE LABEL COMMENTS 11/26/20 22:55 Docusate Sodium (Colace) 100 mg BID PO 11/30/20 21:00 11/30/20 20:30 Fluticasone Propionate (Flonase 0.05% Nasal Nickerson) 1 spray DAILY NARES 11/27/20 09:00 11/30/20 09:04 Gabapentin (Neurontin) 400 mg TID PO 11/26/20 22:55 11/26/20 23:23 DC Glucagon (Glucagon) 1 mg ASDIRECTED PRN SC SEE LABEL COMMENTS 11/26/20 22:55 Glucose (Glucose) 16 GM ASDIRECTED PRN PO SEE LABEL COMMENTS 11/26/20 22:55 Heparin Sodium (Porcine) (Heparin) ASDIRECTED PRN IV SEE LABEL COMMENTS 11/26/20 23:15 11/27/20 00:52 DC Heparin Sodium (Porcine) (Heparin) 5,000 units Q8H SQ 11/27/20 06:00 11/27/20 12:05 DC 11/27/20 05:34 Heparin Sodium (Porcine) (Heparin) 5,000 units Q8H SQ 11/27/20 22:00 11/30/20 20:29 Heparin Sodium (Porcine) 38341 units/IV Miscellaneous Supplies 250 ml @ 0 mls/hr Q0M IV 11/26/20 23:15 11/27/20 00:52 DC Home Med (Home Med List Complete!) ASDIRECTED XX 11/26/20 21:50 11/26/20 21:47 DC Insulin Human Lispro (HumaLOG INSULIN) See Protocol Table AC SC 11/29/20 07:30 11/30/20 08:59 Insulin Human Lispro (HumaLOG INSULIN) See Protocol Table ACHS SC 11/28/20 19:10 UNV Insulin Human Lispro (HumaLOG INSULIN) See Protocol Table Q6H SC 11/27/20 00:00 11/28/20 19:09 DC 11/28/20 12:00 Insulin Human Lispro (HumaLOG INSULIN) See Protocol Table QHS SC 11/28/20 21:00 Lidocaine (Lidoderm Patch) 1 patch QHS TD 11/26/20 21:00 11/30/20 20:30 Magnesium Hydroxide (Milk Of Magnesia) 30 ml DAILY PRN PO CONSTIPATION 11/26/20 21:45 Methocarbamol (Robaxin) 250 mg QHS PO 11/26/20 22:55 11/26/20 23:21 DC Non-Formulary Medication ( See Comment Field Below ) REMOVE LIDODERM PATCH DAILY@0900 XX 11/28/20 09:00 11/30/20 09:15 Non-Formulary Medication ( See Comment Field Below ) REMOVE LIDODERM PATCH DAILY@21 XX 11/27/20 21:00 11/27/20 21:27 DC Non-Formulary Medication (Heparin Iv Rate Change Documentation ml/ Hr) ASDIRECTED XX 11/26/20 23:15 11/27/20 00:52 DC Piperacillin Sod/ Tazobactam Sod 3.375 gm/Dextrose 50 ml @ 50 mls/hr Q6H IV 11/27/20 04:00 11/27/20 11:53 DC 11/27/20 09:38 Polyethylene Glycol (Miralax) 1 pkt DAILYPRN PRN PO CONSTIPATION 11/30/20 20:20 Senna (Senokot) 1 tab Q12HP PRN PO CONSTIPATION 11/30/20 20:20 Sodium Bicarbonate 100 meq/Dextrose/Water 1,100 ml @ 80 mls/hr [id number] IV 11/29/20 14:00 11/30/20 14:59 DC 11/30/20 00:48 Sodium Chloride 1,000 ml @ 75 mls/hr [id number] IV 11/27/20 01:00 11/29/20 11:22 DC 11/28/20 22:23 Sodium Chloride 1,000 ml @ 999 mls/hr Q1H1M IV 11/27/20 11:55 11/27/20 13:55 DC 11/27/20 13:19 Sodium Chloride (Nacl 0.9%) 2,600 ml BOLUS STAT IV 11/26/20 21:43 11/26/20 23:12 DC Vancomycin HCl 1000 mg/IV Miscellaneous Supplies 1 each/ Sodium Chloride 270 ml @ 270 mls/hr Q24H IV 11/27/20 03:00 11/27/20 12:04 DC 11/27/20 03:17 Allergies Coded Allergies: No Known Allergies (Unverified , 03/12/17) Assessment/Plan Date Seen The patient was seen on 11/30/20 in AM. Plan / VTE VTE Prophylaxis Ordered?: Yes Plan Orders past 48 Hours Orders Fingerstick Blood Sugar (11/29/20 07:11) Cbc With Differential (11/29/20 07:21) Basic Metabolic Profile (11/29/20 07:21) Magnesium Level (11/29/20 07:21) Nt-Probnp (11/29/20 07:21) Differential No Charge (11/29/20 07:41) Platelet Estimate (11/29/20 07:41) Nephrology Consult (11/29/20 10:06) Pill Cutter (Pill Cutter) (11/29/20 10:10) Cefepime Hcl (Maxipime) (11/30/20 09:00) D5w (Dextrose 5%) W/Sodium Bicarbonate (11/29/20 14:00) Urinalysis (11/29/20 11:24) * Nursing Order * (11/29/20 11:24) Atenolol (Tenormin) (11/30/20 09:00) Fingerstick Blood Sugar (11/29/20 11:23) Fingerstick Blood Sugar (11/29/20 17:46) Fingerstick Blood Sugar (11/29/20 20:48) Attending Doctor Change: (11/30/20 04:16) Fingerstick Blood Sugar (11/30/20 07:19) Basic Metabolic Profile (11/30/20 07:34) Fingerstick Blood Sugar (11/30/20 12:12) Fingerstick Blood Sugar (11/30/20 16:47) Fingerstick Blood Sugar (11/30/20 19:39) Polyethylene Glycol (Miralax) (11/30/20 20:20) Senna (Senokot) (11/30/20 20:20) Docusate Sodium (Colace) (11/30/20 21:00) Plan Text 1. Acute renal failure: Non Oliguric. Gradually improving renal function. cont Bicarb fluid for now. 2. Hyperchloremic metabolic acidosis: Improving with IV bicarb fluid. 3. Community-acquired pneumonia: Patient is on I.V. Cefepime and Azithromycin. 4. Non-insulin dependent diabetes: stable and controlled. Avoid use of Metformin or CATARINO inhibitors at this time. LANETTE SPEARS MD Nov 30, 2020 23:01
[2020-12-01 05:17] VITALS: BP 146/85
[2020-12-01] MEDS: HEPARIN SOD (PORCINE) 5000UNITS/ML 1ML VIAL/SYRINGE SQ SCH (05:31)
[2020-12-01] MEDS: HumaLOG INSULIN (NovoLOG) PER UNIT SC SCH ×2 (07:30→11:55)
[2020-12-01 08:25] VITALS: BP 144/88
[2020-12-01] MEDS: ATENOLOL 12.5MG PER 1/2 TABLET PO SCH (08:25)
[2020-12-01] MEDS: DOCUSATE SODIUM 100MG CAPSULE PO SCH (08:25)
[2020-12-01] MEDS: buPROPion **SR TABLET** (ZYBAN) 150MG PO SCH (08:25)
[2020-12-01] MEDS: CEFEPIME HCL 2 GM in D5W MINI-BAG PLUS 50 ML IV SCH (08:25)
[2020-12-01] MEDS: FLUTICASONE PROP 0.05% NASAL SPRAY 16 GM (FLONASE) NARES SCH (08:26)
[2020-12-01] MEDS: **NOTE PATIENT COMMENT** MISC XX SCH (08:27)
[2020-12-01] MEDS ORDERED: SODIUM BICARBONATE 325 MG TAB PO SCH (09:00)
[2020-12-01 09:02] LABS: BASO # 0.1 10^3/uL (0.0-0.2); BASO % 0.7 % (0.0-1.0); EOS # 0.2 10^3/uL (0.0-0.5); EOS % 1.6 % (0.0-3.0); HEMATOCRIT 37.1 % (42.0-52.0); HEMOGLOBIN 12.6 g/dl (13.5-17.5); LYMPH % 11.4 % (24.0-44.0); MEAN CORPUSCULAR VOLUME 88.3 fl (80.0-96.0); MONO # 0.8 10^3/uL (0.0-0.8); MONO % 8.6 % (2.0-8.0); NEUTROPHILS # 6.8 10^3/uL (1.5-8.5); NEUTROPHILS % 74.1 % (36.0-66.0); PLATELET COUNT, AUTOMATED 565 10^3/uL (150-450); WHITE BLOOD COUNT 9.2 10^3/uL (4.0-10.0)
[2020-12-01 09:15] LABS: CALCIUM LEVEL 8.5 MG/DL (8.5-10.1); CREATININE FOR GFR 4.01 MG/DL (0.70-1.30); GLOMERULAR FILTRATION RATE 17.6 (>60); MAGNESIUM LEVEL 2.1 MG/DL (1.8-2.4); POTASSIUM SERUM 4.4 MEQ/L (3.5-5.1)
[2020-12-01] MEDS ORDERED: FLUCONAZOLE 100 MG TAB PO ONE (09:30)
[2020-12-01] MEDS ORDERED: AZIT-12 PO (11:51)
[2020-12-01] MEDS ORDERED: SODI325T9 PO ×2 (11:51→12:24)
[2020-12-01] MEDS ORDERED: ZITH500T PO (12:21)
[2020-12-01] MEDS ORDERED: CLIN150C17 PO (12:23)
--- NOTE | 2020-12-01 13:42 | DS.PDOC ---
Discharge Summary General Date of Admission Nov 26, 2020 at 21:43 Date of Discharge Dec 01, 2020 Attending Physician: SRI RAMESH MD Specialist/Consultants Involve: LANETTE SPEARS MD Discharge Summary PROCEDURES PERFORMED DURING STAY: [None]. ADMITTING DIAGNOSES: 1. Sepsis likely secondary to pneumonia 2. Chest pain likely secondary to pneumonia 3. CANDACE 4. Hepatic better transaminitis 5. Metabolic acidosis 6. Hyponatremia 7. Elevated CPK 8. Elevated BNP 9. Elevated D-dimer 10. Diarrhea 11. Migraines 12. NIDDM. DISCHARGE DIAGNOSES: 1. Sepsis likely secondary to pneumonia 2. Chest pain likely secondary to pneumonia 3. Acute tubular necrosis 4. Hepatic pattern of transaminitis 5. Metabolic acidosis 6. Hyponatremia 7. Elevated PSA 8. Elevated CPK 9. Elevated BNP likely due to pneumonia 10. Elevated D-dimer 11. Diarrhea 12. Migraines 13. NIDDM COMPLICATIONS/CHIEF COMPLAINT: Candace,Pneumonia,Sepsis. HISTORY OF PRESENT ILLNESS: Patient presented to the ED with a 6-day history of dyspnea, diarrhea, cough. Per patient he had a negative Covid test done at [facility]. He also developed left upper abdominal pain, subjective fevers, no bloody vomiting, and poor appetite. HOSPITAL COURSE: 11/26/2020: Patient presents to the ED and was subsequently admitted for further evaluation and management of his condition. He started on Zosyn and vancomycin for pneumonia pending results of multiple cultures. GI panel was ordered for diarrhea. Chest x-ray and abdominal pelvis CT showed evidence of pneumonia and pleural effusion. 11/27/2020: Patient reported resolution of shortness of breath and difficulty breathing that he came in with. Was on Covid contact precautions. Zosyn and vancomycin were discontinued patient was switched to cefepime and azithromycin. Patient's PSA was 6.80. 11/28/2020: Patient reported complete resolution of shortness of breath but still was experiencing a productive cough. IV fluids were decreased to 75 mL/h. Spot urine, creatinine, total protein, and cytology was ordered. Prostate gland was shown to be enlarged on renal ultrasound. Sputum culture was collected. MRSA is not detected on serology. 11/29/2020: No events reported overnight patient kidney values were slowly improving. Sputum culture showed few yeastlike organisms with pseudohyphae, moderate gram-positive cocci in pairs, chains and clusters, few gram-positive rods. Blood cultures showed strep pneumo, Legionella and MRSA for 48 hours. Urine culture showed atypical cytology with groups of epithelial cells. A consult with Dr. Spears was placed due to GFR less than 20. 11/30/2020: Patient had no events overnight. Dr. Gonzales recommended decreasing patient's cefepime dose and adding sodium bicarb IV instead of IV normal saline. Urine was positive for Legionella antigens. DISCHARGE MEDICATIONS: Please see below. ALLERGIES: Please see below. PHYSICAL EXAMINATION ON DISCHARGE: VITAL SIGNS: Please see below. GENERAL: 40-year-old male, lying in bed, no acute distress HEENT: Head normocephalic atraumatic CARDIOVASCULAR EXAMINATION: Regular rate and rhythm, no murmurs, rubs, no gallop RESPIRATORY EXAMINATION: Clear to auscultation bilaterally, no wheezes, no rhonchi, no crackles ABDOMINAL EXAMINATION: Normoactive bowel sounds and nontender to palpation in all quadrants, no rebound tenderness or guarding EXTREMITIES: No lower extremity edema appreciated, 2+ radial pulses LABORATORY DATA: Please see below. IMAGING: Renal ultrasound 11/28/2020: Normal renal ultrasound. Mildly prominent heterogeneous prostate gland. Vascular ultrasound 11/26/2020: No evidence of deep vein fibrosis Chest CT 11/26/2020: 1. Extensive airspace consolidation in the left upper and lower lobes, which is most compatible with pneumonia. 2. Trace left pleural effusion. Abdomen pelvis CT 11/26/2020: Extensive infiltrate involving the left lower lobe and left mid lung field. This could be an extensive pneumonia associated with COVID-19. Follow-up films should be obtained to see that this clears to exclude any possibility of underlying malignant nodule. Chest x-ray 11/26/2020: Extensive interstitial and alveolar pneumonic infiltrate left parahilar region and throughout the left lower lobe. This is a very extensive pneumonia and could be associated with COVID-19. Sequential films would be important to see that this resolves and to exclude any possibility of underlying mass lesion. PROGNOSIS: Good ACTIVITY: As tolerated. DIET: As tolerated DISPOSITION: Home DISCHARGE INSTRUCTIONS AND ITEMS TO FOLLOW-UP OUTPATIENT: Please be compliant with your medications: Please complete two more days of azithromycin and three more day course of clindamycin to complete a total antibiotic course of 7 days. Please stop taking naproxen or [id number] Motrin or other NSAIDs. Please take bicarb 325 mg p.o. twice daily for seven more days. Follow-up with nephrology within 7 days of hospital discharge. Please stop taking Metformin and comply with lifestyle modifications. Please follow-up with your PCP within 7 days of hospital discharge. If your symptoms present and/or worsen please present back to the nearest ER. DISCHARGE CONDITION: [Stable]. TIME SPENT ON DISCHARGE: 35 minutes. Vital Signs/I&Os Vital Signs Date Time Temp Pulse Resp B/P (MAP) Pulse Ox O2 Delivery O2 Flow Rate FiO2 12/01/20 08:25 68 144/88 12/01/20 05:17 98.4 16 95 Room Air I&O- Last 24 Hours up to 6 AM 12/01/20 06:00 Intake Total 1600 ml Output Total 500 ml Balance 1100 ml Laboratory Data Labs 24H Laboratory Tests 2 11/30/20 16:47: Bedside Glucose (Misc Panel) 97 11/30/20 19:39: Bedside Glucose (Misc Panel) 158H 12/01/20 08:06: Bedside Glucose (Misc Panel) 97 12/01/20 08:42: Immature Granulocyte % (Auto) 3.6H, Neutrophils (%) (Auto) 74.1H, Lymphocytes (%) (Auto) 11.4L, Monocytes (%) (Auto) 8.6H, Eosinophils (%) (Auto) 1.6, Basophils (%) (Auto) 0.7, Neutrophils # (Auto) 6.8, Lymphocytes # (Auto) 1.0L, Monocytes # (Auto) 0.8, Eosinophils # (Auto) 0.2, Basophils # (Auto) 0.1, Nucleated Red Blood Cells % (auto) 0.0, Anion Gap 7L, Glomerular Filtration Rate 17.6L, Calcium Level 8.5, Magnesium Level 2.1 12/01/20 11:45: Bedside Glucose (Misc Panel) 119H CBC/BMP Laboratory Tests 12/01/20 08:42 FSBS Laboratory Tests Test 11/30/20 16:47 11/30/20 19:39 12/01/20 08:06 12/01/20 11:45 Range/Units Bedside Glucose (Misc Panel) 97 158 97 119 70-105 MG/DL Microbiology Microbiology 11/28/20 Gram Stain - Final, Complete 11/28/20 Sputum Culture - Final, Complete Yeast Like Organism Staphylococcus Aureus 11/27/20 Respiratory Virus Panel (PCR) (KRYSTLE) - Final, Complete 11/26/20 Blood Culture - Preliminary, Resulted No Growth after 72 hours. All specime... 11/26/20 Blood Culture - Preliminary, Resulted No Growth after 72 hours. All specime... 11/26/20 Respiratory Virus Panel (PCR) (KRYSTLE) - Final, Complete Discharge Medications Scheduled Atenolol (Atenolol) 25 Mg Tablet, 12.5 MG PO DAILY, (Reported) Azithromycin (Zithromax) 500 Mg Tablet, 500 MG PO DAILY Bupropion HCl (Wellbutrin Sr) 150 Mg Tab.sr.12h, 150 MG PO BID, (Reported) Cholecalciferol (Vitamin D3) (Vitamin D3) 1,000 Unit Tablet, 1,000 UNITS PO BIDWM, (Reported) Clindamycin Hcl (Clindamycin HCl) 150 Mg Capsule, 150 MG PO QID Fluticasone Propionate (Flonase Allergy Relief) 9.9 Ml [place].susp, 1 SPRAY NARES DAILY, (Reported) Gabapentin (Gabapentin) 400 Mg Capsule, 400 MG PO TID, (Reported) Guaifenesin (Guaifenesin) 400 Mg Tablet, 400 MG PO BID, (Reported) Methocarbamol (Methocarbamol) 500 Mg Tablet, 250 MG PO QHS, (Reported) Riboflavin (Vitamin B2) (Riboflavin) 400 Mg Tablet, 400 MG PO DAILY, (Reported) Rosuvastatin Calcium (Rosuvastatin Calcium) 40 Mg Tablet, 40 MG PO QPM, (Reported) Sodium Bicarbonate (Sodium Bicarbonate) 325 Mg Tablet, 1 TAB PO BID for indigestion Sodium Chloride ([place]) 104 Ml [place], 1 SPRAY NARES BID, (Reported) EACH NOSTRIL Scheduled PRN Terbinafine HCl (Terbinafine) 28.4 Gm Cream..g., 1 APLCT TOP BID PRN for TOENAIL INFECTION, (Reported) Allergies Coded Allergies: No Known Allergies (Unverified , 03/12/17) GME ATTESTATION GME ATTESTATION My faculty preceptor for this patient encounter was physically present during the encounter and was fully available. All aspects of the patient interview, examination, medical decision making process, and medical care plan development were reviewed and approved by the faculty preceptor. The faculty preceptor is aware and concurs with the plan as stated in the body of this note and will attest to such by his/her cosignature. Mark Cruz DO Dec 01, 2020 13:42
[2020-12-01 14:09] LABS: LEGIONELLA ANTIGEN URINE Positive (Negative)
--- NOTE | 2020-12-01 22:10 | IPNPDOC ---
Subjective CC/HPI The patient is a 40-year-old male admitted with a reason for visit of Candace,Pneumonia,Sepsis. Events since last encounter Pt was seen at bedside in AM. UOP 2300/220ml by the time I saw him. Renal function very gradually improving. He is symptomatically better. Medical team is planning to DC him. Acidosis improving with Oral bicarb. General: Denies: Chills, Night Sweats Constitutional: Denies: Chills, Fever Eyes: Denies: Pain, Vision change ENT: Denies: Head Aches Skin: Denies: Rash, Lesions Pulmonary: Denies: Dyspnea, Cough Cardiovascular: Denies: Chest Pain, Palpitations Gastrointestinal: Denies: Nausea, Vomiting Genitourinary: Denies: Dysuria, Frequency Musculoskeletal: Denies: Neck Pain, Back Pain Neurological: Denies: Weakness Psych: Reports: Mood Normal Objective Physical Examination General Exam: Alert, No Acute Distress EYE EXAM: PERRLA, Conjunctiva & lids normal, EOMI ENT EXAM: Atraumatic, Mucous membr. moist/pink Neck Exam: Supple; No: JVD Chest Exam: Clear to auscultation, Normal air movement Heart Exam: Rate Normal; No: Murmurs, Rubs ABDOMEN EXAM: Normal bowel sounds, Soft; No: Tenderness Extremity Exam: No: Clubbing, Cyanosis, Edema Skin Exam: Nl turgor and temperature; No: Rash Neuro Exam: Normal Speech, Strength at 5/5 X4 ext Psych Exam: Mental status NL, Mood NL, Oriented x 3 Vital Signs/I&O Vital Signs Date Time Temp Pulse Resp B/P (MAP) Pulse Ox O2 Delivery O2 Flow Rate FiO2 12/01/20 08:25 68 144/88 12/01/20 05:17 98.4 16 95 Room Air I&O- Last 24 Hours up to 6 AM 12/01/20 06:00 Intake Total 1600 ml Output Total 500 ml Balance 1100 ml Laboratory Data Labs 24H Laboratory Tests 2 12/01/20 08:06: Bedside Glucose (Misc Panel) 97 12/01/20 08:42: Immature Granulocyte % (Auto) 3.6H, Neutrophils (%) (Auto) 74.1H, Lymphocytes (%) (Auto) 11.4L, Monocytes (%) (Auto) 8.6H, Eosinophils (%) (Auto) 1.6, Basophils (%) (Auto) 0.7, Neutrophils # (Auto) 6.8, Lymphocytes # (Auto) 1.0L, Monocytes # (Auto) 0.8, Eosinophils # (Auto) 0.2, Basophils # (Auto) 0.1, Nucleated Red Blood Cells % (auto) 0.0, Anion Gap 7L, Glomerular Filtration Rate 17.6L, Calcium Level 8.5, Magnesium Level 2.1 12/01/20 11:45: Bedside Glucose (Misc Panel) 119H CBC/BMP Laboratory Tests 12/01/20 08:42 FSBS Laboratory Tests Test 12/01/20 08:06 12/01/20 11:45 Range/Units Bedside Glucose (Misc Panel) 97 119 70-105 MG/DL Current Medications Current Medications Medications (Trade) Dose Ordered Sig/Ernst Route PRN Reason Start Time Stop Time Status Last Admin Dose Admin Al Hydrox/Mg Hydrox/Simethicone (Mylanta) 30 ml DAILY PRN PO DYSPEPSIA 11/26/20 21:45 12/01/20 14:04 DC Albuterol Sulfate (Proventil, Ventolin Hfa) 4 puff Q20M INH 11/26/20 19:15 11/26/20 19:56 DC 11/26/20 20:17 Atenolol (Tenormin) 12.5 mg DAILY PO 11/27/20 09:00 11/29/20 11:28 DC 11/29/20 11:20 Atenolol (Tenormin) 12.5 mg DAILY PO 11/30/20 09:00 12/01/20 14:04 DC 12/01/20 08:25 Azithromycin (Zithromax Tab) 500 mg DAILY@2100 PO 11/27/20 21:00 12/01/20 14:04 DC 11/30/20 20:29 Bupropion HCl (Zyban, Wellbutrin Sr) 150 mg BID PO 11/26/20 22:55 12/01/20 14:04 DC 12/01/20 08:25 Cefepime HCl 2 gm/ Dextrose 50 ml @ 100 mls/hr DAILY IV 11/30/20 09:00 12/01/20 14:04 DC 12/01/20 08:25 Cefepime HCl 2 gm/ Dextrose 50 ml @ 100 mls/hr Q12H IV 11/27/20 16:00 11/29/20 11:20 DC 11/29/20 03:56 Dextrose (Dextrose 50%) 25 ml ASDIRECTED PRN IV SEE LABEL COMMENTS 11/26/20 22:55 12/01/20 14:04 DC Docusate Sodium (Colace) 100 mg BID PO 11/30/20 21:00 12/01/20 14:04 DC 12/01/20 08:25 Fluconazole (Diflucan Tablet) 200 mg DAILY PO 12/02/20 09:00 12/01/20 14:04 DC Fluticasone Propionate (Flonase 0.05% Nasal [place]) 1 spray DAILY NARES 11/27/20 09:00 12/01/20 14:04 DC 12/01/20 08:26 Gabapentin (Neurontin) 400 mg TID PO 11/26/20 22:55 11/26/20 23:23 DC Glucagon (Glucagon) 1 mg ASDIRECTED PRN SC SEE LABEL COMMENTS 11/26/20 22:55 12/01/20 14:04 DC Glucose (Glucose) 16 GM ASDIRECTED PRN PO SEE LABEL COMMENTS 11/26/20 22:55 12/01/20 14:04 DC Heparin Sodium (Porcine) (Heparin) ASDIRECTED PRN IV SEE LABEL COMMENTS 11/26/20 23:15 11/27/20 00:52 DC Heparin Sodium (Porcine) (Heparin) 5,000 units Q8H SQ 11/27/20 06:00 11/27/20 12:05 DC 11/27/20 05:34 Heparin Sodium (Porcine) (Heparin) 5,000 units Q8H SQ 11/27/20 22:00 12/01/20 14:04 DC 12/01/20 05:31 Heparin Sodium (Porcine) 42747 units/IV Miscellaneous Supplies 250 ml @ 0 mls/hr Q0M IV 11/26/20 23:15 11/27/20 00:52 DC Home Med (Home Med List Complete!) ASDIRECTED XX 11/26/20 21:50 11/26/20 21:47 DC Insulin Human Lispro (HumaLOG INSULIN) See Protocol Table AC SC 11/29/20 07:30 12/01/20 14:04 DC 11/30/20 08:59 Insulin Human Lispro (HumaLOG INSULIN) See Protocol Table ACHS SC 11/28/20 19:10 UNV Insulin Human Lispro (HumaLOG INSULIN) See Protocol Table Q6H SC 11/27/20 00:00 11/28/20 19:09 DC 11/28/20 12:00 Insulin Human Lispro (HumaLOG INSULIN) See Protocol Table QHS SC 11/28/20 21:00 12/01/20 14:04 DC Lidocaine (Lidoderm Patch) 1 patch QHS TD 11/26/20 21:00 12/01/20 14:04 DC 11/30/20 20:30 Magnesium Hydroxide (Milk Of Magnesia) 30 ml DAILY PRN PO CONSTIPATION 11/26/20 21:45 12/01/20 14:04 DC Methocarbamol (Robaxin) 250 mg QHS PO 11/26/20 22:55 11/26/20 23:21 DC Non-Formulary Medication ( See Comment Field Below ) REMOVE LIDODERM PATCH DAILY@0900 XX 11/28/20 09:00 12/01/20 14:04 DC 12/01/20 08:27 Non-Formulary Medication ( See Comment Field Below ) REMOVE LIDODERM PATCH DAILY@21 XX 11/27/20 21:00 11/27/20 21:27 DC Non-Formulary Medication (Heparin Iv Rate Change Documentation ml/ Hr) ASDIRECTED XX 11/26/20 23:15 11/27/20 00:52 DC Piperacillin Sod/ Tazobactam Sod 3.375 gm/Dextrose 50 ml @ 50 mls/hr Q6H IV 11/27/20 04:00 11/27/20 11:53 DC 11/27/20 09:38 Polyethylene Glycol (Miralax) 1 pkt DAILYPRN PRN PO CONSTIPATION 11/30/20 20:20 12/01/20 14:04 DC Senna (Senokot) 1 tab Q12HP PRN PO CONSTIPATION 11/30/20 20:20 12/01/20 14:04 DC Sodium Bicarbonate 100 meq/Dextrose/Water 1,100 ml @ 80 mls/hr [id number] IV 11/29/20 14:00 11/30/20 14:59 DC 11/30/20 00:48 Sodium Bicarbonate (Sodium Bicarbonate) 325 mg BID PO 12/01/20 09:00 12/01/20 14:04 DC 12/01/20 11:36 Sodium Chloride 1,000 ml @ 75 mls/hr [id number] IV 11/27/20 01:00 11/29/20 11:22 DC 11/28/20 22:23 Sodium Chloride 1,000 ml @ 999 mls/hr Q1H1M IV 11/27/20 11:55 11/27/20 13:55 DC 11/27/20 13:19 Sodium Chloride (Nacl 0.9%) 2,600 ml BOLUS STAT IV 11/26/20 21:43 11/26/20 23:12 DC Vancomycin HCl 1000 mg/IV Miscellaneous Supplies 1 each/ Sodium Chloride 270 ml @ 270 mls/hr Q24H IV 11/27/20 03:00 11/27/20 12:04 DC 11/27/20 03:17 Allergies Coded Allergies: No Known Allergies (Unverified , 03/12/17) Assessment/Plan Date Seen The patient was seen on 12/01/20 in AM at [facility] unit Plan / VTE VTE Prophylaxis Ordered?: Yes Plan Orders past 48 Hours Orders Attending Doctor Change: (11/30/20 04:16) Fingerstick Blood Sugar (11/30/20 07:19) Basic Metabolic Profile (11/30/20 07:34) Fingerstick Blood Sugar (11/30/20 12:12) Fingerstick Blood Sugar (11/30/20 16:47) Fingerstick Blood Sugar (11/30/20 19:39) Polyethylene Glycol (Miralax) (11/30/20 20:20) Senna (Senokot) (11/30/20 20:20) Docusate Sodium (Colace) (11/30/20 21:00) Cbc With Differential (12/01/20 07:15) Basic Metabolic Profile (12/01/20 07:15) Magnesium Level (12/01/20 07:15) Fingerstick Blood Sugar (12/01/20 08:06) Fluconazole (Diflucan Tablet) (12/01/20 09:30) Fluconazole (Diflucan Tablet) (12/02/20 09:00) Sodium Bicarbonate (Sodium Bicarbonate) (12/01/20 09:00) Arrange Follow Up With: (12/01/20 09:53) Immunoglobulin G,A,M (12/01/20 11:20) Fingerstick Blood Sugar (12/01/20 11:45) Discharge/Transfer Order (12/01/20 11:43) Patient Discharge Instruction (12/01/20 13:31) Plan Text 1. Acute renal failure, Likely sec to Legionella: Non Oliguric. Gradually improving renal function.No need of HD. Follow up with Nephrology on DC. 2. Hyperchloremic metabolic acidosis: Started on Oral bicarb. Bicarb is improving. 3. Community-acquired pneumonia, Positive urine legionella Ag, Elevated transaminases, CANDACE: Patient is on I.V. Cefepime and Azithromycin. Clinically better. 4. Non-insulin dependent diabetes: stable and controlled. Avoid use of Metformin or CATARINO inhibitors at this time. Disposition: OK to [place] from nephrology standpoint. LANETTE SPEARS MD Dec 01, 2020 22:10
[2020-12-02] MEDS ORDERED: FLUCONAZOLE 100 MG TAB PO SCH (09:00)
== END 2020-12-01 14:00 | disposition home or self-care (01) | DRG 871 ==
LOC: M ED 16:51 → M ED INP 21:43 → M PCU 11-27 00:33 → M MSPAV 11-30 10:05
PROVIDERS: ADMIT Internal Medicine; ATTEND Internal Medicine
DX: A41.9 Sepsis, unspecified organism (principal); J18.9 Pneumonia, unspecified organism; G93.41 Metabolic encephalopathy; N17.9 Acute kidney failure, unspecified; E87.1 Hypo-osmolality and hyponatremia; E87.2 Acidosis; G43.909 Migraine, unspecified, not intractable, without status migrainosus; E11.9 Type 2 diabetes mellitus without complications; R19.7 Diarrhea, unspecified; Z79.899 Other long term (current) drug therapy

== ENCOUNTER 2022-10-11 02:11 | Emergency (ER) | payer OTHER ==
[~2022-10-11] VITALS: Ht 188 cm; Wt 94.0 kg
[~2022-10-11 02:11] MED LIST changes: +ACET500T15 PO; +ATEN25TA PO; +AZIT-12 PO; +BUPR15TA PO; +CLIN150C17 PO; +FLON1SPR NARES; -GABA-283 PO; +GABA-284 PO; +GNP1CRE5 TOP; +GUAI400T9 PO; +METF-838 PO; +METH-1164 PO; +NAPR-885 PO; +OCEA0.654 NARES; +RIBO400T PO; +ROSU40TA4 PO; +SODI325T9 PO; +VITA100093 PO; +ZITH500T PO
[2022-10-11 02:12] VITALS: BP 137/91; TEMP 97.8; O2SAT 98
[2022-10-11] MEDS ORDERED: CLINDAMYCIN 150MG CAPSULE PO ONE (04:45)
[2022-10-11] MEDS ORDERED: CLEO300C2 PO (04:45)
[2022-10-11] MEDS ORDERED: PRED20TA PO (04:45)
== END 2022-10-11 05:09 | disposition home or self-care (01) ==
LOC: M ED 02:11
DX: K04.7 Periapical abscess without sinus (principal); N18.9 Chronic kidney disease, unspecified; E11.9 Type 2 diabetes mellitus without complications; F17.200 Nicotine dependence, unspecified, uncomplicated; Z79.899 Other long term (current) drug therapy

== ENCOUNTER → 2022-12-31 | Outpatient (REF) ==
[~2022-12-31] MED LIST changes: +CLEO300C2 PO; +PRED20TA PO
== END ==
LOC: M PLAIMG 12:14
PROVIDERS: ATTEND Internal Medicine
DX: R52 Pain, unspecified (principal)

== ENCOUNTER 2023-11-12 07:14 | Day surgery (SDC) | payer OTHER ==
[~2023-11-12] VITALS: Ht 188 cm; Wt 95.3 kg
[~2023-11-12 07:14] MED LIST changes: +METF500T13 PO; +RAMI1.258 PO; -ROSU40TA4 PO; +ROSU40TA81 PO
[2023-11-12] MEDS: NS 1,000 ML IV ONE (07:47)
[2023-11-12] MEDS ORDERED: LIDOCAINE 2% 100MG/5ML SDV (FOR ANES.) As Ordered ONE (07:52)
[2023-11-12] MEDS ORDERED: propofoL 200 MG/20 ML VIAL As Ordered ONE (07:52)
[2023-11-12] MEDS ORDERED: dexmedeTOMIDine (4MCG/ML)200MCG/50ML BTL (PRECEDEX) As Ordered ONE (07:52)
[2023-11-12 09:04] VITALS: TEMP 98.9
[2023-11-12 09:10] VITALS: BP 144/88; O2SAT 96
== END 2023-11-12 09:14 | disposition home or self-care (01) ==
LOC: M OPP 07:14
PROVIDERS: ATTEND Surgery
DX: Z12.11 Encounter for screening for malignant neoplasm of colon (principal); I10 Essential (primary) hypertension; E78.00 Pure hypercholesterolemia, unspecified; E11.9 Type 2 diabetes mellitus without complications; K21.9 Gastro-esophageal reflux disease without esophagitis; M19.90 Unspecified osteoarthritis, unspecified site; G43.909 Migraine, unspecified, not intractable, without status migrainosus; F17.210 Nicotine dependence, cigarettes, uncomplicated; G47.33 Obstructive sleep apnea (adult) (pediatric); Z99.89 Dependence on other enabling machines and devices; Z91.048 Other nonmedicinal substance allergy status; Z79.51 Long term (current) use of inhaled steroids; Z79.84 Long term (current) use of oral hypoglycemic drugs; Z79.899 Other long term (current) drug therapy

== ENCOUNTER → 2024-01-22 | Outpatient (CLI) | payer OTHER ==
[~2024-01-22] MED LIST changes: -CYCL5TAB PO; +CYCL5TAB4 PO
[2024-01-22 14:02] LABS: PLATELET COUNT, AUTOMATED 310 10^3/uL (150-450)
[2024-01-22 14:14] LABS: INR 0.85; PARTIAL THROMBOPLASTIN TIME 28.9 SECONDS (24.8-34.2)
== END ==
LOC: M LAB 13:15
PROVIDERS: ATTEND Orthopaedic Surgery
DX: Z01.818 Encounter for other preprocedural examination (principal)

== ENCOUNTER 2024-05-15 19:05 | Emergency (ER) | payer OTHER ==
[~2024-05-15] VITALS: Ht 188 cm; Wt 90.9 kg
[2024-05-15 19:09] VITALS: TEMP 97.3
[2024-05-15] MEDS: KETOROLAC 30 MG/ML 1ML VIAL IM ONE (22:44)
[2024-05-15 23:29] VITALS: BP 122/77; O2SAT 96
[2024-05-16] MEDS ORDERED: IBUP-1022 PO (00:09)
[2024-05-16] MEDS ORDERED: CANEMIS41 XX (00:10)
== END 2024-05-16 00:21 | disposition home or self-care (01) ==
LOC: M ED 19:05
DX: S76.211A Strain of adductor muscle, fascia and tendon of right thigh, initial encounter (principal); M25.561 Pain in right knee; W00.0XXA Fall on same level due to ice and snow, initial encounter; Y92.009 Unspecified place in unspecified non-institutional (private) residence as the place of occurrence of the external cause; Y93.89 Activity, other specified; Y99.9 Unspecified external cause status; Z91.048 Other nonmedicinal substance allergy status; Z79.4 Long term (current) use of insulin; Z79.899 Other long term (current) drug therapy
CPT/HCPCS: 73030; 73502; 96372; 99283; J1885